=== PATIENT | female | born 1965 | race Caucasian/White ===

== ENCOUNTER → 2016-10-15 | Outpatient (CLI) | payer BC | LOC: OD 08:10 | PROVIDERS: ATTEND Internal Medicine | DX: M19.012 Primary osteoarthritis, left shoulder (principal) ==

== ENCOUNTER → 2016-10-30 | Outpatient (CLI) | payer BC ==
[2016-10-30 15:10] LABS: ABSOLUTE BASOPHILS # (AUTO) 0.1 10^3/uL (0.0-0.2); ABSOLUTE EOSINOPHILS # (AUTO) 0.2 10^3/uL (0.0-0.6); ABSOLUTE MONOCYTES (AUTO) 0.6 10^3/uL (0.1-1.4); ABSOLUTE NEUT (AUTO) 4.1 10^3/uL (1.7-8.2); BASOPHILS % (AUTO) 0.8 % (0-2); EOSINOPHILS % (AUTO) 2.3 % (0-6); HEMATOCRIT 41.5 % (36.0-47.0); HEMOGLOBIN 14.5 g/dL (12.0-15.5); LYMPHOCYTES % (AUTO) 29.6 % (13-45); MEAN CORPUSCULAR HEMOGLOBIN 31.6 pg (27.0-33.4); MEAN CORPUSCULAR HGB CONC 34.9 g/dL (32.0-36.0); MEAN CORPUSCULAR VOLUME 91 fl (80-97); MONOCYTES % (AUTO) 8.1 % (3-13); RED BLOOD COUNT 4.58 10^6/uL (3.72-5.28); RED CELL DISTRIBUTION WIDTH 13.7 % (11.5-14.0); SEGMENTED NEUTROPHILS % (AUTO) 59.2 % (42-78); WHITE BLOOD COUNT 6.9 10^3/uL (4.0-10.5)
[2016-10-30 17:11] LABS: ALANINE AMINOTRANSFERASE 44 U/L (9-52); ALBUMIN 4.5 g/dL (3.5-5.0); ALKALINE PHOSPHATASE 90 U/L (38-126); ANION GAP 16 (5-19); ASPARTATE AMINO TRANSFERASE 33 U/L (14-36); BILIRUBIN,DIRECT 0.4 mg/dL (0.0-0.4); BILIRUBIN,TOTAL 0.9 mg/dL (0.2-1.3); BLOOD UREA NITROGEN 14 mg/dL (7-20); CALCIUM 9.6 mg/dL (8.4-10.2); CARBON DIOXIDE 22 mmol/L (22-30); CHLORIDE 102 mmol/L (98-107); CHOLESTEROL 233.37 mg/dL (0-200); CREATININE RESULT 0.74 mg/dL (0.52-1.25); Direct HDL 37 mg/dL (>40); GLUCOSE 96 mg/dL (75-110); POTASSIUM 3.9 mmol/L (3.6-5.0); SODIUM 140.2 mmol/L (137-145); TOTAL PROTEIN 7.5 g/dL (6.3-8.2); TRIGLYCERIDES 212 mg/dL (<150)
[2016-10-30 17:22] LABS: DIRECT LDL 146 mg/dL (<100)
[2016-10-30 17:26] LABS: VLDL CHOLESTEROL 42.4 mg/dL (10-31)
== END ==
LOC: OD 14:25
PROVIDERS: ATTEND Internal Medicine
DX: E78.2 Mixed hyperlipidemia (principal); Z13.1 Encounter for screening for diabetes mellitus; E55.9 Vitamin D deficiency, unspecified; E66.9 Obesity, unspecified; Z79.899 Other long term (current) drug therapy
CPT/HCPCS: 36415; 80053; 80061; 82306; 84443; 85025

== ENCOUNTER → 2016-11-04 | Outpatient (CLI) | payer BC ==
[2016-11-04 17:11] LABS: THYROID STIMULATING HORMONE 5.35 uIU/mL (0.47-4.68)
== END ==
LOC: OD 14:55
PROVIDERS: ATTEND Internal Medicine
DX: E66.9 Obesity, unspecified (principal)
CPT/HCPCS: 36415; 84439; 84443; 86376

== ENCOUNTER → 2016-12-10 | Outpatient (CLI) | payer BC ==
--- NOTE | 2016-12-10 16:57 | RADIOLOGY REPORT (SQ) ---
EXAM DESCRIPTION: MRI CERVICAL SPINE WITHOUT COMPLETED DATE/TIME: 12/10/2016 4:29 pm REASON FOR STUDY: RADICULOPATHY, CERVICAL REGION M54.12 RADICULOPATHY, CERVICAL REGION COMPARISON: Cervical spine five views 08/06/2013 TECHNIQUE: Sagittal and Axial imaging includes T1, T2, STIR and gradient echo sequences. LIMITATIONS: None. FINDINGS: ALIGNMENT: Normal. VERTEBRAE: Intact. BONE MARROW: Normal. No marrow replacement or reactive changes. DISCS: Mild diffuse decreased T2 weighted intervertebral disc signal throughout the visualized cervic al and upper thoracic spine HARDWARE: None in the spine. CORD AND BASE OF BRAIN: Normal in size and signal intensity. SOFT TISSUES: No soft tissue masses. C1-C2: No significant spinal stenosis. C2-C3: No significant spinal stenosis or exit foraminal stenosis. C3-C4: Minimal central posterior disc bulging is present without significant central canal or right f oraminal narrowing. Mild left foraminal narrowing from facet and uncovertebral hypertrophy. C4-C5: Minimal posterior disc bulging is present without significant central stenosis. No foraminal narrowing. C5-C6: Mild diffuse posterior disc bulging is present without significant central or foraminal encroa chment C6-C7: Mild diffuse posterior disc bulging is present without significant central or foraminal encroa chment C7-T1: Mild posterior disc bulging is present without significant central or foraminal encroachment UPPER THORACIC: Incompletely imaged. No significant spinal stenosis or exit foraminal stenosis. OTHER: No other significant finding. IMPRESSION: No significant central or foraminal stenosis. TECHNICAL DOCUMENTATION: JOB ID: [id number] [employer]- All Rights Reserved
== END ==
LOC: RAD 15:48
PROVIDERS: ATTEND Orthopaedic Surgery
DX: M54.12 Radiculopathy, cervical region (principal)
CPT/HCPCS: 72141

== ENCOUNTER 2017-03-05 12:55 | Emergency (ER) | payer BC ==
[2017-03-05] MEDS ORDERED: HYDROCODONE/ACETAMINOPHEN 5-325 MG TABLET PO ONE (13:14)
[2017-03-05] MEDS ORDERED: ONDANSETRON 4 MG TAB.RAPDIS PO ONE (13:14)
--- NOTE | 2017-03-05 13:16 | ER Document Report ---
ED Medical Screen (RME) - General Chief Complaint: Abdominal Pain Stated Complaint: STOMACH PAIN Time Seen by Provider: 03/05/17 13:11 Notes: 51-year-old female patient reports eating burgers at [employer] yesterday about 1 PM. About 6 PM she started having right upper quadrant abdominal pain. There is no diarrhea associated with this but quite a bit of nausea. She had been diagnosed with ulcers a few years ago. She still has her gallbladder. She is quite tender in the right upper quadrant on palpation. I have greeted and performed a rapid initial assessment of this patient. A comprehensive ED assessment and evaluation of the patient, analysis of test results and completion of the medical decision making process will be conducted by additional ED providers. TRAVEL OUTSIDE OF THE [place] IN LAST 30 DAYS: No - Related Data Allergies/Adverse Reactions: lovastatin [From Mevacor] Allergy (Severe, Verified 03/05/17 13:01) Past Medical History - Social History Chew tobacco use (# tins/day): No Frequency of alcohol use: None Drug Abuse: None - Past Medical History Cardiac Medical History: Reports: Hx Heart Attack, Hx Hypercholesterolemia, Hx Hypertension Denies: Hx Atrial Fibrillation, Hx Congestive Heart Failure, Hx Coronary Artery Disease, Hx Peripheral Vascular Disease, Hx Pulmonary Embolism, Hx Heart Murmur Pulmonary Medical History: Reports: Hx Asthma, Hx Bronchitis, Hx COPD Denies: Hx Pneumonia, Hx Respiratory Failure, Hx Sleep Apnea, Hx Tuberculosis Neurological Medical History: Reports: Hx Migraine. Denies: Hx Cerebrovascular Accident, Hx Seizures Endocrine Medical History: Denies: Hx Graves' Disease, Hx Hyperthyroidism, Hx Hypothyroidism Renal/ Medical History: Denies: Hx End Stage Renal Disease, Hx Kidney Stones, Hx Ovarian Cysts, Hx Peritoneal Dialysis, Hx Pelvic Inflammatory Disease Malignancy Medical History: Denies: Hx Breast Cancer, Hx Cervical Cancer, Hx Leukemia, Hx Lung Cancer, Hx Ovarian Cancer GI Medical History: Reports: Hx Gastroesophageal Reflux Disease. Denies: Hx Crohn's Disease, Hx Hiatal Hernia, Hx Irritable Bowel, Hx Liver Failure, Hx Ulcer Musculoskeltal Medical History: Reports Hx Arthritis, Denies Hx Fibromyalgia, Denies Hx Multiple Sclerosis, Denies Hx Muscular Dystrophy, Reports Hx Musculoskeletal Deformity, Reports Hx Musculoskeletal Trauma Psychiatric Medical History: Denies: Hx Bipolar Disorder, Hx Dementia, Hx Depression, Hx Post Traumatic Stress Disorder, Hx Schizophrenia Traumatic Medical History: Reports: Hx Fractures - SHOUDLER AND BACK Infectious Medical History: Denies: Hx HIV Past Surgical History: Reports: Hx Genitourinary Surgery - "bladder mesh" 2016, Hx Tonsillectomy - 1970, Hx Tubal Ligation. Denies: Hx Appendectomy, Hx Bowel Surgery, Hx Section, Hx Cholecystectomy, Hx Colostomy, Hx Coronary Artery Bypass Graft, Hx Gastric Bypass Surgery, Hx Herniorrhaphy, Hx Hysterectomy, Hx Mastectomy, Hx Pacemaker - Immunizations Immunizations up to date: No Hx Diphtheria, Pertussis, Tetanus Vaccination: Yes Physical Exam - Vital signs Vitals: Temp Pulse Resp BP Pulse Ox 98.6 F 94 20 182/98 H 98 03/05/17 12:59 03/05/17 12:59 03/05/17 12:59 03/05/17 12:59 03/05/17 12:59 Course - Vital Signs Vital signs: Temp Pulse Resp BP Pulse Ox 98.6 F 94 20 182/98 H 98 03/05/17 12:59 03/05/17 12:59 03/05/17 12:59 03/05/17 12:59 03/05/17 12:59
[2017-03-05 14:15] LABS: ABSOLUTE EOSINOPHILS # (AUTO) 0.2 10^3/uL (0.0-0.6); ABSOLUTE LYMPHOCYTES (AUTO) 1.8 10^3/uL (0.5-4.7); ABSOLUTE MONOCYTES (AUTO) 0.8 10^3/uL (0.1-1.4); ABSOLUTE NEUT (AUTO) 5.8 10^3/uL (1.7-8.2); BASOPHILS % (AUTO) 0.6 % (0-2); EOSINOPHILS % (AUTO) 1.9 % (0-6); HEMOGLOBIN 14.2 g/dL (12.0-15.5); HGB HCT DIFFERENCE 3.6; LYMPHOCYTES % (AUTO) 21.1 % (13-45); MEAN CORPUSCULAR HEMOGLOBIN 32.8 pg (27.0-33.4); MEAN CORPUSCULAR HGB CONC 36.3 g/dL (32.0-36.0); MEAN CORPUSCULAR VOLUME 90 fl (80-97); MONOCYTES % (AUTO) 8.8 % (3-13); RED BLOOD COUNT 4.32 10^6/uL (3.72-5.28); RED CELL DISTRIBUTION WIDTH 13.8 % (11.5-14.0); SEGMENTED NEUTROPHILS % (AUTO) 67.6 % (42-78); WHITE BLOOD COUNT 8.6 10^3/uL (4.0-10.5)
[2017-03-05 14:24] LABS: APPEARANCE,URINE CLOUDY; BILIRUBIN,URINE NEGATIVE (NEGATIVE); GLUCOSE, URINE NEGATIVE (NEGATIVE); KETONES,URINE NEGATIVE (NEGATIVE); LEUKOCYTE ESTERASE,URINE LARGE (NEGATIVE); NITRITE,URINE POSITIVE (NEGATIVE); PROTEIN,URINE 30 mg/dL (NEGATIVE); URINE SPECIFIC GRAVITY 1.014; UROBILINOGEN,URINE NEGATIVE mg/dL (<2.0)
[2017-03-05 14:37] LABS: ALANINE AMINOTRANSFERASE 51 U/L (9-52); ALBUMIN 4.5 g/dL (3.5-5.0); ALKALINE PHOSPHATASE 93 U/L (38-126); ANION GAP 12 (5-19); ASPARTATE AMINO TRANSFERASE 41 U/L (14-36); BILIRUBIN,DIRECT 0.4 mg/dL (0.0-0.4); BILIRUBIN,TOTAL 1.2 mg/dL (0.2-1.3); BLOOD UREA NITROGEN 10 mg/dL (7-20); CALCIUM 9.7 mg/dL (8.4-10.2); CARBON DIOXIDE 27 mmol/L (22-30); CHLORIDE 104 mmol/L (98-107); CREATININE RESULT 0.64 mg/dL (0.52-1.25); GLUCOSE 97 mg/dL (75-110); LIPASE 80.5 U/L (23-300); POTASSIUM 3.8 mmol/L (3.6-5.0); SODIUM 143.4 mmol/L (137-145); TOTAL PROTEIN 7.6 g/dL (6.3-8.2)
[2017-03-05] MEDS ORDERED: CEFTRIAXONE INJ 1000 MG VIAL IM ONE (14:53)
[2017-03-05] MEDS ORDERED: LIDOCAINE 1% INJ-PF (10 MG/ML) 30 ML SDV INJ ONE (14:53)
--- NOTE | 2017-03-05 14:53 | ER Document Report ---
ED GI/ - General Chief Complaint: Abdominal Pain Stated Complaint: STOMACH PAIN Time Seen by Provider: 03/05/17 13:11 Mode of Arrival: Ambulatory Information source: Patient Notes: Patient presents complaining of right upper quadrant abdominal pain that started around 6 PM yesterday. Patient states she did have a fever of over 100 yesterday but used an old thermometer and could not read the numbers exactly. Patient denies any nausea, vomiting or diarrhea. Patient denies any cough. Patient without any chest pain symptoms. Patient does complain of some urinary frequency. TRAVEL OUTSIDE OF THE [place] IN LAST 30 DAYS: No - HPI Patient complains to provider of: Abdominal pain, Other - Urinary frequency. No : Dysuria, Vaginal discharge, Vomiting Onset: Yesterday Timing/Duration: Persistent Quality of pain: Other - Tight Pain Level: 4 Location: RUQ. No: Left flank, Right flank Vaginal bleeding (Compared to normal period): None Associated symptoms: Fever, Urinary frequency. 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 with: Spouse/Significant other Family History: Reviewed & Not Pertinent, Arthritis, CAD, CVA, DM, Hyperlipidemia, Hypertension, Thyroid Disfunction - Past Medical History Cardiac Medical History: Reports: Hx Heart Attack, Hx Hypercholesterolemia, Hx Hypertension Pulmonary Medical History: Reports: Hx Asthma, Hx Bronchitis, Hx COPD Neurological Medical History: Reports: Hx Migraine GI Medical History: Reports: Hx Gastroesophageal Reflux Disease Musculoskeltal Medical History: Reports Hx Arthritis, Reports Hx Musculoskeletal Deformity, Reports Hx Musculoskeletal Trauma Traumatic Medical History: Reports: Hx Fractures - SHOUDLER AND BACK Infectious Medical History: Denies: Hx HIV Past Surgical History: Reports: Hx Genitourinary Surgery - "bladder mesh" 2016, Hx Tonsillectomy - 1970, Hx Tubal Ligation - Immunizations Immunizations up to date: No Hx Diphtheria, Pertussis, Tetanus Vaccination: Yes Review of Systems - Review of Systems Constitutional: Fever. denies: Recent illness EENT: No symptoms reported Cardiovascular: No symptoms reported. denies: Chest pain Respiratory: No symptoms reported. denies: Cough, Short of breath Gastrointestinal: Abdominal pain. denies: Diarrhea, Nausea, Vomiting, Constipation Genitourinary: Frequency. denies: Dysuria, Flank pain Female Genitourinary: No symptoms reported. denies: Vaginal discharge, Vaginal bleeding Musculoskeletal: No symptoms reported. denies: Back pain Skin: No symptoms reported Hematologic/Lymphatic: No symptoms reported Neurological/Psychological: No symptoms reported Physical Exam - Vital signs Vitals: Temp Pulse Resp BP Pulse Ox 98.6 F 94 20 182/98 H 98 03/05/17 12:59 03/05/17 12:59 03/05/17 12:59 03/05/17 12:59 03/05/17 12:59 - General General appearance: Appears well, Alert In distress: None - HEENT Head: Normocephalic Eyes: Normal Conjunctiva: Normal Nasal: Normal Mouth/Lips: Normal Mucous membranes: Normal Neck: Normal, Supple. No: Lymphadenopathy - Respiratory Respiratory status: No respiratory distress Chest status: Nontender Breath sounds: Normal. No: Rales, Rhonchi, Stridor, Wheezing Chest palpation: Normal - Cardiovascular Rhythm: Regular Heart sounds: S1 appreciated, S2 appreciated Murmur: No - Abdominal Inspection: Obese Distension: No distension Bowel sounds: Normal Tenderness: Tender - RUQ Organomegaly: No organomegaly - Back Back: Normal, Nontender. No: CVA tenderness, Vertebra tenderness - Extremities General upper extremity: Normal inspection, Normal ROM General lower extremity: Normal inspection, Normal ROM - Neurological Neuro grossly intact: Yes Cognition: Normal Orientation: AAOx4 [place] Coma Scale Eye Opening: Spontaneous [place] Coma Scale Verbal: Oriented [place] Coma Scale Motor: Obeys Commands [place] Coma Scale Total: 15 - Psychological Associated symptoms: Normal affect, Normal mood - Skin Skin Temperature: Warm Skin Moisture: Dry Skin Color: Normal Course - Re-evaluation Re-evalutation: 03/05/17 15:[address] Russell who agrees with discharge plan of care. Does not recommend any additional imaging studies. Agrees with plan to treat patient's UTI with Rocephin and Bactrim. - Vital Signs Vital signs: Temp Pulse Resp BP Pulse Ox 98.6 F 94 20 158/95 H 98 03/05/17 12:59 03/05/17 12:59 03/05/17 12:59 03/05/17 17:11 03/05/17 12:59 - Laboratory Result Diagrams: 03/05/17 13:40 03/05/17 13:40 Laboratory results interpreted by me: 03/05/17 03/05/17 03/05/17 13:40 13:40 13:40 MCHC 36.3 H AST 41 H Urine Protein 30 H Urine Blood SMALL H Urine Nitrite POSITIVE H Ur Leukocyte Esterase LARGE H 03/05/17 15:52 Labs- Entire Visit 03/05/17 03/05/17 03/05/17 13:40 13:40 13:40 WBC 8.6 RBC 4.32 Hgb 14.2 Hct 39.0 MCV 90 MCH 32.8 MCHC 36.3 H RDW 13.8 Plt Count 201 Seg Neutrophils % 67.6 Lymphocytes % 21.1 Monocytes % 8.8 Eosinophils % 1.9 Basophils % 0.6 Absolute Neutrophils 5.8 Absolute Lymphocytes 1.8 Absolute Monocytes 0.8 Absolute Eosinophils 0.2 Absolute Basophils 0.0 Sodium 143.4 Potassium 3.8 Chloride 104 Carbon Dioxide 27 Anion Gap 12 BUN 10 Creatinine 0.64 Est GFR ( Amer) > 60 Est GFR (Non-Af Amer) > 60 Glucose 97 Calcium 9.7 Total Bilirubin 1.2 Direct Bilirubin 0.4 Indirect Bilirubin Not Reportable Neonat Total Bilirubin Not Reportable AST 41 H ALT 51 Alkaline Phosphatase 93 Total Protein 7.6 Albumin 4.5 Lipase 80.5 Urine Color YELLOW Urine Appearance CLOUDY Urine pH 5.0 Ur Specific [place] 1.014 Urine Protein 30 H Urine Glucose (UA) NEGATIVE Urine Ketones NEGATIVE Urine Blood SMALL H Urine Nitrite POSITIVE H Urine Bilirubin NEGATIVE Urine Urobilinogen NEGATIVE Ur Leukocyte Esterase LARGE H Urine WBC (Auto) >182 Urine RBC (Auto) 32 Urine Bacteria (Auto) 1+ Urine WBC Clumps MANY Squamous Epi Cells Auto 6 Urine Mucus (Auto) MANY Urine Ascorbic Acid NEGATIVE - Diagnostic Test Radiology reviewed: Reports reviewed Discharge - Discharge Clinical Impression: Fatty liver, Hx of essential hypertension UTI (urinary tract infection) Qualifiers: Urinary tract infection type: site unspecified Hematuria presence: with hematuria Qualified Code(s): N39.0 - Urinary tract infection, site not specified Abdominal pain Qualifiers: Abdominal location: right upper quadrant Qualified Code(s): R10.11 - Right upper quadrant pain Condition: Stable Disposition: HOME, SELF-CARE Instructions: Abdominal Pain ([facility]), Rocephin ([facility]), Trimethoprim-Sulfa ([facility]), Urinary Tract Infection ([facility]) Additional Instructions: Return immediately for any new or worsening symptoms Followup with your primary care provider, call tomorrow to make a followup appointment Urine cultures pending, we will call if you need any different treatment Follow-up with your primary doctor for further evaluation of fatty liver findings on ultrasound Prescriptions: Phenazopyridine HCl [Pyridium 200 mg Tablet] 200 mg PO TID #15 tablet Sulfamethoxazole/Trimethoprim [Bactrim Ds Tablet] 1 each PO BID #20 tablet Forms: Elevated Blood Pressure Referrals: ISAAC CORTEZ MD [Primary Care Provider] - 03/08/17 RANDEE LOWE MD [ACTIVE STAFF] - Follow up in 1 week
--- NOTE | 2017-03-05 15:09 | RADIOLOGY REPORT (SQ) ---
EXAM DESCRIPTION: U/S ABDOMEN LIMITED W/O DOP COMPLETED DATE/TIME: 03/05/2017 2:40 pm REASON FOR STUDY: RUQ abd pain COMPARISON: None. TECHNIQUE: Dynamic and static grayscale images acquired of the abdomen and recorded on PACS. Amrito deborah selected color Doppler and spectral images recorded. LIMITATIONS: None. FINDINGS: PANCREAS: No masses. Visualized pancreatic duct normal caliber. LIVER: 18.5 cm. Increased echogenicity. Focal fatty sparing adjacent to the gallbladder. LIVER VASCULATURE: Normal directional flow of the main portal vein and hepatic veins. GALLBLADDER: No stones. Normal wall thickness. No pericholecystic fluid. ULTRASOUND-DETECTED JOSHUA'S SIGN: Negative. INTRAHEPATIC DUCTS AND COMMON DUCT: CBD and intrahepatic ducts normal caliber. No filling defects. INFERIOR VENA CAVA: Normal flow. AORTA: No aneurysm. RIGHT KIDNEY: Normal size, 11.5 cm. Normal echogenicity. No solid or suspicious masses. No hydroneph rosis. No calcifications. PERITONEAL AND RIGHT PLEURAL SPACE: No ascites or effusions. OTHER: No other significant findings. IMPRESSION: Hepatomegaly with fatty infiltration of the liver. TECHNICAL DOCUMENTATION: JOB ID: [id number] [employer]- All Rights Reserved
[2017-03-05] MEDS ORDERED: SULFAMETHOXAZOLE/TRIMETHOPRIM 800-160 MG TABLET PO ONE (15:57)
[2017-03-05] MEDS ORDERED: PHENAZOPYRIDINE HCL 200 MG TABLET PO ONE (15:57)
[2017-03-05 17:12] VITALS: BP 158/95
== END 2017-03-05 17:12 | disposition home or self-care (01) ==
LOC: ER 12:55
DX: N39.0 Urinary tract infection, site not specified (principal); R31.9 Hematuria, unspecified; K76.0 Fatty (change of) liver, not elsewhere classified; R10.11 Right upper quadrant pain; R35.0 Frequency of micturition; R50.9 Fever, unspecified; I25.2 Old myocardial infarction; I10 Essential (primary) hypertension; J44.9 Chronic obstructive pulmonary disease, unspecified; Z87.19 Personal history of other diseases of the digestive system; Z88.8 Allergy status to other drugs, medicaments and biological substances
CPT/HCPCS: 99284; 96372; 36415; 87086; 83690; 85025; 87088; 80053; 81001; 87186; 76705; S0119; J3490 ×2; J0696

== ENCOUNTER 2017-10-10 18:07 | Emergency (ER) | payer BC, OTHER ==
[2017-10-10] MEDS ORDERED: HYDROCODONE/ACETAMINOPHEN 5-325 MG (6 TAB/ER DISP) PO PRN (20:12)
[2017-10-10] MEDS ORDERED: LIDOCAINE 5% (700 MG) TRANSDERMAL ADH..PATCH TP ONE (20:12)
[2017-10-10] MEDS ORDERED: CYCLOBENZAPRINE HCL 10 MG TABLET PO ONE (20:12)
--- NOTE | 2017-10-10 20:15 | ER Document Report ---
HPI - HPI Patient complains to provider of: Neck pain Onset: Other - 5 months Onset/Duration: Persistent Quality of pain: Achy Pain Level: 4 Context: Patient presents complaining of left lateral neck pain for the past 5 months. Patient denies any injury. Patient states she does have a known history of cervical spurring diagnosed on MRI last year. Patient denies any fever. Patient denies any weakness. Patient complains worsening pain which prompted her to come in today. Associated Symptoms: Other - Left-sided neck pain. denies: Headache Exacerbated by: Movement Relieved by: Denies Similar symptoms previously: Yes Recently seen / treated by doctor: No - ROS ROS below otherwise negative: Yes Systems Reviewed and Negative: Yes All other systems reviewed and negative - CONSTITUTIONAL Constitutional: DENIES: Fever, Chills - EENT EENT: DENIES: Sore Throat, Ear Pain, Eye problems - NEURO Neurology: DENIES: Headache, Weakness - CARDIOVASCULAR Cardiovascular: DENIES: Chest pain - RESPIRATORY Respiratory: DENIES: Trouble Breathing, Coughing - GASTROINTESTINAL Gastrointestinal: DENIES: Abdominal Pain, Nausea, Patient vomiting - REPRODUCTIVE Reproductive: DENIES: : - MUSCULOSKELETAL Musculoskeletal: REPORTS: Back Pain, Neck Pain. DENIES: Extremity pain - DERM Skin Color: Normal Past Medical History - General Information source: Patient - Social History Smoking Status: Never Smoker Frequency of alcohol use: None Drug Abuse: None Occupation: [employer] Family History: Reviewed & Not Pertinent, Arthritis, CAD, CVA, DM, Hyperlipidemia, Hypertension, Thyroid Disfunction Patient has suicidal ideation: No Patient has homicidal ideation: No - Past Medical History Cardiac Medical History: Reports: Hx Heart Attack, Hx Hypercholesterolemia, Hx Hypertension Denies: Hx Atrial Fibrillation, Hx Congestive Heart Failure, Hx Coronary Artery Disease, Hx Peripheral Vascular Disease, Hx Pulmonary Embolism, Hx Heart Murmur Pulmonary Medical History: Reports: Hx Asthma, Hx Bronchitis, Hx COPD Denies: Hx Pneumonia, Hx Respiratory Failure, Hx Sleep Apnea, Hx Tuberculosis Neurological Medical History: Reports: Hx Migraine. Denies: Hx Cerebrovascular Accident, Hx Seizures Endocrine Medical History: Denies: Hx Graves' Disease, Hx Hyperthyroidism, Hx Hypothyroidism Renal/ Medical History: Denies: Hx End Stage Renal Disease, Hx Kidney Stones, Hx Ovarian Cysts, Hx Peritoneal Dialysis, Hx Pelvic Inflammatory Disease Malignancy Medical History: Denies: Hx Breast Cancer, Hx Cervical Cancer, Hx Leukemia, Hx Lung Cancer, Hx Ovarian Cancer GI Medical History: Reports: Hx Gastroesophageal Reflux Disease. Denies: Hx Crohn's Disease, Hx Hiatal Hernia, Hx Irritable Bowel, Hx Liver Failure, Hx Pancreatitis, Hx Ulcer Musculoskeltal Medical History: Reports Hx Arthritis, Denies Hx Fibromyalgia, Denies Hx Multiple Sclerosis, Denies Hx Muscular Dystrophy, Reports Hx Musculoskeletal Deformity, Reports Hx Musculoskeletal Trauma Psychiatric Medical History: Denies: Hx Bipolar Disorder, Hx Dementia, Hx Depression, Hx Post Traumatic Stress Disorder, Hx Schizophrenia Traumatic Medical History: Reports: Hx Fractures - SHOUDLER AND BACK Infectious Medical History: Denies: Hx HIV Past Surgical History: Reports: Hx Genitourinary Surgery - "bladder mesh" 2016, Hx Tonsillectomy - 1970, Hx Tubal Ligation - Immunizations Immunizations up to date: No Hx Diphtheria, Pertussis, Tetanus Vaccination: Yes Vertical Provider Document - CONSTITUTIONAL Agree With Documented VS: Yes Exam Limitations: No Limitations General Appearance: WD/WN, No Apparent Distress - INFECTION CONTROL TRAVEL OUTSIDE OF THE [place] IN LAST 30 DAYS: No - HEENT HEENT: Atraumatic, Normal ENT Exam, Normocephalic Notes: No pain with movement of left helix. No dental decay or infection. - NECK Neck: Normal Inspection, Supple - RESPIRATORY Respiratory: Breath Sounds Normal, No Respiratory Distress - CARDIOVASCULAR Cardiovascular: Regular Rate, Regular Rhythm - BACK Back: Abnormal Inspection - Left trapezius muscle tenderness. negative: CVA Tenderness-Right, CVA Tenderness-Left - MUSCULOSKELETAL/EXTREMETIES Musculoskeletal/Extremeties: MAEW, FROM - NEURO Level of Consciousness: Awake, Alert, Appropriate Motor/Sensory: No Motor Deficit - DERM Integumentary: Warm, Dry, No Rash Course - Re-evaluation Re-evalutation: 10/10/17 20:13 Presents with left lateral neck pain for the past 5 months. Patient states she has a known spur in her cervical spine. Patient without any meningismus, no concern for any cardiac source for her symptoms. Patient encouraged to follow- up with the primary doctor for management of her chronic neck pain. - Vital Signs Vital signs: Temp Pulse Resp BP Pulse Ox 98.3 F 74 14 133/85 H 97 10/10/17 18:14 10/10/17 18:14 10/10/17 18:14 10/10/17 18:14 10/10/17 18:14 Discharge - Discharge Clinical Impression: Chronic neck pain Condition: Stable Disposition: HOME, SELF-CARE Instructions: Chronic Pain Control ([facility]), Muscle Relaxers ([facility]), Muscle Strain ([facility]), Oral Narcotic Medication ([facility]) Additional Instructions: Return immediately for any new or worsening symptoms Followup with your primary care provider, call tomorrow to make a followup appointment Do not take the tramadol with the hydrocodone or the Flexeril Prescriptions: Cyclobenzaprine HCl [Flexeril 10 Mg Tablet] 10 mg PO TID #15 tablet Hydrocodone/Acetaminophen [Heber 5-325 Tablet] 1 each PO Q6 PRN #8 tablet PRN Reason: Referrals: ISAAC CORTEZ MD [Primary Care Provider] - Follow up tomorrow
[2017-10-10 20:26] VITALS: BP 135/85
== END 2017-10-10 20:27 | disposition home or self-care (01) ==
LOC: ER 18:07
DX: M54.2 Cervicalgia (principal); G89.29 Other chronic pain; M54.9 Dorsalgia, unspecified; I25.2 Old myocardial infarction; I10 Essential (primary) hypertension; J44.9 Chronic obstructive pulmonary disease, unspecified
CPT/HCPCS: 99283

== ENCOUNTER → 2018-08-24 | Outpatient (CLI) | payer BC ==
--- NOTE | 2018-08-24 16:37 | WOMENS IMAGING REPORT ---
EXAM DESCRIPTION: BILAT SCREENING MAMMO W/CAD COMPLETED DATE/TIME: 08/24/2018 3:00 pm REASON FOR STUDY: Z12.31 ROUTINE BILATERAL SCREENING Z12.31 ENCNTR SCREEN MAMMOGRAM FOR MALIGNANT N EOPLASM OF SUSY COMPARISON: 01/10/2016. TECHNIQUE: Standard craniocaudal and mediolateral oblique views of each breast recorded using Tutora l acquisition. LIMITATIONS: None. FINDINGS: No masses, calcifications or architectural distortion. No areas of suspicion. Read with the assistance of CAD. .[facility] - R2 Cenova Version 1.3 .[facility] - R2 Cenova Version 2.1 .[facility] - R2 Cenova Version 2.4 .[facility] - R2 Cenova Version 2.4 .[facility] - R2 State Assessed Properties Director Version 9.2 IMPRESSION: NORMAL MAMMOGRAM. BIRADS 1. BREAST DENSITY: a. The breasts are almost entirely fatty. BIRAD: 1 NEGATIVE RECOMMENDATION: ROUTINE SCREENING COMMENT: The patient has been notified of the results by letter per SA requirements. Additional no tification policies are in place for contacting patient with suspicious or incomplete findings. Quality ID #[id number]: The [employer] recommends an annual screening mammogram for women aged 40 years or over. This facility utilizes a reminder system to ensure that all patients receive reminder letters, and/or direct phone calls for appointments. This includes reminders for routine scr eening mammograms, diagnostic mammograms, or other Breast Imaging Interventions when appropriate. Th is patient will be placed in the appropriate reminder system. The [employer] (ACR) has developed recommendations for screening MRI of the breast s in certain patient populations, to be used in conjunction with mammography. Breast MRI surveillanc e may be appropriate for women with more than 20% lifetime risk of developing breast cancer as deter mined by genetic testing, significant family history of the disease, or history of mantle radiation f or Hodgkins Disease. ACR Practice Guidelines 2008. TECHNICAL DOCUMENTATION: FINDING NUMBER: (1) ASSESSMENT: (1) JOB ID: [id number] [employer]- All Rights Reserved Reading location - IP/workstation name: [email or web address]
== END ==
LOC: WI 14:55
PROVIDERS: ATTEND Internal Medicine
DX: Z12.31 Encounter for screening mammogram for malignant neoplasm of breast (principal)
CPT/HCPCS: 77067

== ENCOUNTER 2018-10-02 10:51 | Emergency (ER) | payer BC ==
[2018-10-02] MEDS ORDERED: KETOROLAC TROMETHAMINE 60 MG/2 ML SDV IM ONE (11:27)
--- NOTE | 2018-10-02 11:35 | ER Document Report ---
ED Extremity Problem, Upper - General Chief Complaint: Arm Pain Stated Complaint: RIGHT ARM PAIN Time Seen by Provider: 10/02/18 11:12 Primary Care Provider: ISAAC CORTEZ MD [Primary Care Provider] - Follow up as needed Mode of Arrival: Ambulatory Information source: Patient Notes: 53-year-old female presented to ED for complaint of pain in her right arm. She states she was pulling the chopper out from the cabinet she tripped fell landing on the table and then fell off the table landing on the chair injuring her right upper arm. Patient is alert oriented respirations regular and unlabored. She has limited motion to the shoulder due to chronic pain to bilateral shoulders. She states she gets frequent injections into her shoulders and has an appointment for orthopedics on Wednesday. She states she is on tramadol at home at this time. TRAVEL OUTSIDE OF THE [place] IN LAST 30 DAYS: No - HPI Patient complains to provider of: Right, Shoulder Onset: This morning Recent injury: Possibly Where: Home, Indoors Quality of pain: Sharp, Throbbing Severity of pain: Severe Pain Level: 5 Context: Fall Associated symptoms: None Exacerbated by: Movement, Exertion Relieved by: Rest, Positioning Similar symptoms previously: Yes Recently seen / treated by doctor: No - Related Data Allergies/Adverse Reactions: lovastatin [From Mevacor] Allergy (Severe, Verified 10/02/18 10:52) Past Medical History - General Information source: Patient - Social History Smoking Status: Never Smoker Chew tobacco use (# tins/day): No Frequency of alcohol use: None Drug Abuse: None Lives with: Family Family History: Reviewed & Not Pertinent, Arthritis, CAD, CVA, DM, Hyperlipidemia, Hypertension, Thyroid Disfunction Patient has suicidal ideation: No Patient has homicidal ideation: No - Past Medical History Cardiac Medical History: Reports: Hx Heart Attack, Hx Hypercholesterolemia, Hx Hypertension Pulmonary Medical History: Reports: Hx Asthma, Hx Bronchitis, Hx COPD EENT Medical History: Reports: None Neurological Medical History: Reports: Hx Migraine Endocrine Medical History: Reports: None Renal/ Medical History: Reports: None Malignancy Medical History: Reports: None GI Medical History: Reports: Hx Gastroesophageal Reflux Disease Musculoskeletal Medical History: Reports Hx Arthritis, Reports Hx Musculoskeletal Deformity, Reports Hx Musculoskeletal Trauma Skin Medical History: Reports None Psychiatric Medical History: Reports: None Traumatic Medical History: Reports: Hx Fractures - SHOUDLER AND BACK Infectious Medical History: Reports: None Past Surgical History: Reports: Hx Genitourinary Surgery - "bladder mesh" 2017, Hx Tonsillectomy - 1970, Hx Tubal Ligation - Immunizations Immunizations up to date: No Hx Diphtheria, Pertussis, Tetanus Vaccination: Yes Review of Systems - Review of Systems Constitutional: No symptoms reported EENT: No symptoms reported Cardiovascular: No symptoms reported Respiratory: No symptoms reported Gastrointestinal: No symptoms reported Genitourinary: No symptoms reported Female Genitourinary: No symptoms reported Musculoskeletal: Joint pain - Right shoulder pain right upper arm pain, Muscle pain. denies: Joint swelling Skin: No symptoms reported Hematologic/Lymphatic: No symptoms reported Neurological/Psychological: No symptoms reported -: Yes All other systems reviewed and negative Physical Exam - Vital signs Vitals: Temp Pulse Resp BP Pulse Ox 98.1 F 81 16 141/78 H 95 10/02/18 10:58 10/02/18 10:58 10/02/18 10:58 10/02/18 10:58 10/02/18 10:58 Interpretation: Normal - General General appearance: Appears well, Alert - HEENT Head: Normocephalic, Atraumatic Eyes: Normal Pupils: PERRL - Respiratory Respiratory status: No respiratory distress Chest status: Nontender Breath sounds: Normal Chest palpation: Normal - Cardiovascular Rhythm: Regular Heart sounds: Normal auscultation Murmur: No - Abdominal Inspection: Normal Distension: No distension Bowel sounds: Normal Tenderness: Nontender Organomegaly: No organomegaly - Back Back: Normal, Nontender - Extremities General upper extremity: Normal color, Normal temperature General lower extremity: Normal inspection, Nontender, Normal color, Normal ROM, Normal temperature, Normal weight bearing. No: Corrine's sign Shoulder: Tender, Limited ROM - Right shoulder due to pain, has chronic shoulder problems to left and right shoulder. No: Abrasion, Deformity, Dislocation, Ecchymosis - Right shoulder, Instability, Laceration - Neurological Neuro grossly intact: Yes Cognition: Normal Orientation: AAOx4 [place] Coma Scale Eye Opening: Spontaneous [place] Coma Scale Verbal: Oriented [place] Coma Scale Motor: Obeys Commands [place] Coma Scale Total: 15 Speech: Normal Motor strength normal: LUE, RUE, LLE, RLE Sensory: Normal - Psychological Associated symptoms: Normal affect, Normal mood - Skin Skin Temperature: Warm Skin Moisture: Dry Skin Color: Normal Course - Vital Signs Vital signs: Temp Pulse Resp BP Pulse Ox 98.1 F 74 20 149/83 H 97 10/02/18 12:30 10/02/18 12:30 10/02/18 12:30 10/02/18 12:30 10/02/18 12:30 - Diagnostic Test Radiology reviewed: Image reviewed, Reports reviewed Procedures - Immobilization Right Shoulder Time completed: 11:45 Pre-Proc Neuro Vasc Exam: Normal Immobilizer type: Sling Performed by: PCT Post-Proc Neuro Vasc Exam: Normal Alignment checked and good: Yes Discharge - Discharge Clinical Impression: Right shoulder injury Qualifiers: Encounter type: initial encounter Qualified Code(s): S49.91XA - Unspecified injury of right shoulder and upper arm, initial encounter Condition: Stable Disposition: HOME, SELF-CARE Additional Instructions: Shoulder Injury You have injured your shoulder. This usually results from stretching or tearing of the tendons during trauma. Time and protection are required in order to heal properly. Many injuries are quite disabling, and should be taken seriously. Initial treatment includes cold packs and a sling to rest the shoulder. The physician has assessed the seriousness of your injury, and has outlined a treatment plan. Understand that this treatment may change, depending on how you progress. If a re-examination was recommended, it is important that you follow up as instructed. Some shoulder injuries (such as partial tear of the rotator cuff) are only suspected after you've failed to improve. Call us if there's severe pain, numbness, or loss of function. Exercise Program for the Shoulder Since the shoulder moves in so many directions, the joint attachment is weak. Muscles provide most of the stability to the shoulder. You must exercise your shoulder to prevent painful instability or stiffening. PASSIVE - These may be begun within a few days of the injury. While standing, lean forward, allowing the arm to hang down towards the floor. Move the arm in small circles while slowly twisting your chest towards and away from the hanging arm. Do this for one minute. ACTIVE - These may be performed when the doctor gives permission. Begin with the arms at the sides. Raise the arms forward (shoulder's width apart) until they reach shoulder level. Then slowly swing both arms back until they are aiming straight out away from each other. Then bring them forward again, and finally, lower them to your sides. Repeat 20 to 30 times. As you improve, put weights in your hands for the exercise. Start with one pound, and work up to 10 pounds. Never use more than is comfortable. Athletes may work up to 30 pounds. Sling as Treatment A sling has been applied to protect the injury. This is adequate immobilization for this type of injury -- no cast or brace is required. Keep the sling on at all times until instructed to remove it by the doctor. Even though no cast or splint is needed, you must use the sling. If you use the arm too soon, it may not heal properly! If necessary, the sling can be adjusted for comfort. Return if you are encountering problems with the sling. Ibuprofen Ibuprofen is an excellent, safe drug for pain control. In addition, it has potent antiinflammatory effects which are beneficial, especially in the treatment of injuries, arthritis, or tendonitis. It's best to take ibuprofen with food. Persons with ulcer disease or allergy to aspirin should notify their physician of this before taking ibuprofen. Take the medication exactly as prescribed. Don't take additional doses unless instructed to do so by your doctor. If you develop wheezing, shortness of breath, hives, faintness, stomach pain, vomiting, or dark black stools, return for re-evaluation at once. Ice Packs Apply ice packs frequently against the painful area. Many different schedules are recommended, such as "20 minutes on, 20 minutes off" or "one hour ice, two hours rest." If you need to work, you may need to go longer between ice treatments. You should plan to have the area ice packed AT LEAST one fourth of the time. The ice should be applied over the wrap, tape, or splint, or over a layer of cloth -- not directly against the skin. Some ice bags have a built-in cloth and can be put directly on the skin. FOLLOW-UP CARE: If you have been referred to a physician for follow-up care, call the physicians office for an appointment as you were instructed or within the next two days. If you experience worsening or a significant change in your symptoms, notify the physician immediately or return to the Emergency Department at any time for re-evaluation. Take your tramadol when you get home and also keep your appointment with orthopedics on Wednesday. Your x-ray was negative and I have given you a written report of the x-ray. The sling is to be used for pain. But she still need to move your shoulder to prevent a frozen shoulder. Forms: Elevated Blood Pressure, Return to Work Referrals: ISAAC CORTEZ MD [Primary Care Provider] - Follow up as needed
--- NOTE | 2018-10-02 11:58 | RADIOLOGY REPORT (SQ) ---
EXAM DESCRIPTION: SHOULDER RIGHT 2 OR MORE VIEWS COMPLETED DATE/TIME: 10/02/2018 11:40 am REASON FOR STUDY: pain and injury COMPARISON: None. NUMBER OF VIEWS: Three views. TECHNIQUE: Internal rotation, external rotation, and Y view images acquired of the right shoulder. LIMITATIONS: None. FINDINGS: MINERALIZATION: Normal. BONES: No acute fracture or dislocation. No worrisome bone lesions. JOINTS: No dislocation. VISUALIZED LUNGS AND RIBS: No pneumothorax. No rib fracture. SOFT TISSUES: No radiopaque foreign body. OTHER: No other significant finding. IMPRESSION: NEGATIVE STUDY OF THE RIGHT SHOULDER. NO RADIOGRAPHIC EVIDENCE OF ACUTE INJURY. TECHNICAL DOCUMENTATION: JOB ID: [id number] [employer]- All Rights Reserved Reading location - IP/workstation name: [email or web address]
[2018-10-02 12:31] VITALS: BP 149/83
== END 2018-10-02 12:38 | disposition home or self-care (01) ==
LOC: ER 10:51
DX: S49.91XA Unspecified injury of right shoulder and upper arm, initial encounter (principal); W01.190A Fall on same level from slipping, tripping and stumbling with subsequent striking against furniture, initial encounter; E78.00 Pure hypercholesterolemia, unspecified; I10 Essential (primary) hypertension; J44.9 Chronic obstructive pulmonary disease, unspecified; I25.2 Old myocardial infarction; Z98.51 Tubal ligation status
CPT/HCPCS: 99283; 96372; 73030; J1885

== ENCOUNTER 2018-11-09 13:35 | Emergency (ER) | payer BC ==
[2018-11-09 13:44] VITALS: BP 155/89
[2018-11-09] MEDS ORDERED: TRAMADOL HCL 50 MG TABLET PO ONE (14:19)
--- NOTE | 2018-11-09 14:20 | ER Document Report ---
HPI - HPI Patient complains to provider of: Left shoulder pain Time Seen by Provider: 11/09/18 14:10 Onset: Other - Chronic Onset/Duration: Persistent Severity: Severe Pain Level: 4 Context: Patient presents emergency department with complaints of left shoulder pain. Reports she is scheduled for surgery next Wednesday. Reports she has an appointment with Dr. Cortez on Wednesday. She is ran. She denies recent trauma. She denies other symptoms such as fever vomiting diarrhea. She is here for pain medication. She is left-hand dominant Associated Symptoms: None Exacerbated by: Movement Relieved by: Denies Similar symptoms previously: Yes Recently seen / treated by doctor: Yes - REPRODUCTIVE Reproductive: DENIES: : - MUSCULOSKELETAL Musculoskeletal: REPORTS: Extremity pain - L shoulder Past Medical History - General Information source: Patient - Social History Smoking Status: Never Smoker Chew tobacco use (# tins/day): No Frequency of alcohol use: None Drug Abuse: None Occupation: [employer] Family History: Reviewed & Not Pertinent, Arthritis, CAD, CVA, DM, Hyperlipidemia, Hypertension, Thyroid Disfunction Patient has suicidal ideation: No Patient has homicidal ideation: No - Past Medical History Cardiac Medical History: Reports: Hx Heart Attack, Hx Hypercholesterolemia, Hx Hypertension Denies: Hx Atrial Fibrillation, Hx Congestive Heart Failure, Hx Coronary Artery Disease, Hx Peripheral Vascular Disease, Hx Pulmonary Embolism, Hx Heart Murmur Pulmonary Medical History: Reports: Hx Asthma, Hx Bronchitis, Hx COPD Denies: Hx Pneumonia, Hx Respiratory Failure, Hx Sleep Apnea, Hx Tuberculosis Neurological Medical History: Reports: Hx Migraine. Denies: Hx Cerebrovascular Accident, Hx Seizures Endocrine Medical History: Denies: Hx Graves' Disease, Hx Hyperthyroidism, Hx Hypothyroidism Renal/ Medical History: Denies: Hx End Stage Renal Disease, Hx Kidney Stones, Hx Ovarian Cysts, Hx Peritoneal Dialysis, Hx Pelvic Inflammatory Disease Malignancy Medical History: Denies: Hx Breast Cancer, Hx Cervical Cancer, Hx Leukemia, Hx Lung Cancer, Hx Ovarian Cancer GI Medical History: Reports: Hx Gastroesophageal Reflux Disease. Denies: Hx Crohn's Disease, Hx Hiatal Hernia, Hx Irritable Bowel, Hx Liver Failure, Hx Pancreatitis, Hx Ulcer Musculoskeletal Medical History: Reports Hx Arthritis, Denies Hx Fibromyalgia, Denies Hx Multiple Sclerosis, Denies Hx Muscular Dystrophy, Reports Hx Musculoskeletal Deformity, Reports Hx Musculoskeletal Trauma, Denies Hx Systemic Lupus Erythematosus Psychiatric Medical History: Denies: Hx Bipolar Disorder, Hx Dementia, Hx Depression, Hx Post Traumatic Stress Disorder, Hx Schizophrenia Traumatic Medical History: Reports: Hx Fractures - SHOUDLER AND BACK Infectious Medical History: Denies: Hx HIV Past Surgical History: Reports: Hx Genitourinary Surgery - "bladder mesh" 2017, Hx Tonsillectomy - 1970, Hx Tubal Ligation. Denies: Hx Appendectomy, Hx Bowel Surgery, Hx Section, Hx Cholecystectomy, Hx Colostomy, Hx Coronary Artery Bypass Graft, Hx Gastric Bypass Surgery, Hx Herniorrhaphy, Hx Hysterectomy, Hx Mastectomy, Hx Pacemaker - Immunizations Immunizations up to date: No Hx Diphtheria, Pertussis, Tetanus Vaccination: Yes Vertical Provider Document - CONSTITUTIONAL Agree With Documented VS: Yes Exam Limitations: No Limitations General Appearance: WD/WN, No Apparent Distress - INFECTION CONTROL TRAVEL OUTSIDE OF THE [place] IN LAST 30 DAYS: No - HEENT HEENT: Atraumatic, Normocephalic - NECK Neck: Supple - RESPIRATORY Respiratory: No Respiratory Distress - CARDIOVASCULAR Cardiovascular: Regular Rate - MUSCULOSKELETAL/EXTREMETIES Musculoskeletal/Extremeties: Tender - Reports left shoulder tender to palpate - NEURO Level of Consciousness: Awake, Alert, Appropriate Motor/Sensory: No Motor Deficit - DERM Integumentary: Warm, Dry Course - Re-evaluation Re-evalutation: 11/09/18 Patient was instructed on chronic pain policy. Instructed to follow-up with Dr. Cortez for pain medication or her surgeon. Patient has had no recent trauma no other symptoms such as fever vomiting diarrhea no erythema or swelling to the area. Patient was provided with 1 Ultram here and again instructed to follow-up with Dr. Cortez who she has an appointment with on Wednesday. She verbalized understanding to all instructions. Dictation of this chart was performed using voice recognition software; therefore, there may be some unintended grammatical errors. - Vital Signs Vital signs: Temp Pulse Resp BP Pulse Ox 98.3 F 93 16 155/89 H 97 11/09/18 13:40 11/09/18 13:40 11/09/18 13:40 11/09/18 13:40 11/09/18 13:40 Discharge - Discharge Clinical Impression: Chronic left shoulder pain Condition: Stable Disposition: HOME, SELF-CARE Additional Instructions: *You have been evaluated for left shoulder pain *Keep your scheduled appointment for surgery next Wednesday *Follow-up with Dr. Cortez for pain management *Return to ED for worsening condition, changes, needs Forms: Elevated Blood Pressure Referrals: ISAAC CORTEZ MD [Primary Care Provider] - 11/11/18
== END 2018-11-09 14:34 | disposition home or self-care (01) ==
LOC: ER 13:35
DX: G89.29 Other chronic pain (principal); M25.512 Pain in left shoulder; I10 Essential (primary) hypertension; J44.9 Chronic obstructive pulmonary disease, unspecified
CPT/HCPCS: 99283

== ENCOUNTER 2019-03-12 03:06 | Emergency (ER) | payer BC ==
--- NOTE | 2019-03-12 07:25 | ER Document Report ---
ED General - General Chief Complaint: Neck Problem Stated Complaint: FEVER,NECK PAIN INTO JAW Time Seen by Provider: 03/12/19 07:11 Primary Care Provider: ISAAC CORTEZ MD [Primary Care Provider] - Follow up as needed TRAVEL OUTSIDE OF THE [place] IN LAST 30 DAYS: No - HPI Notes: Patient is a 53-year-old female who presents emergency department for evaluation. On Wednesday she had surgery at [place] on her right shoulder. She had her biceps tendon reattached, a "bone spur" removed. She states that on Wednesday and Wednesday she felt fevered. She took her temperature multiple times. Her T-max was 99.8. She denies any vomiting, although she has had some nausea associated with her pain. She denies any cough or shortness of breath. No sore throat. No abdominal pain. No chest leg swelling or pain, no urinary symptoms. Normal bowel movements. She was just concerned because now the pain from her shoulder seems to be radiating up into the side of her neck. She was concerned, believes she should have her arm checked out. - Related Data Allergies/Adverse Reactions: lovastatin [From Mevacor] Allergy (Severe, Verified 11/09/18 13:37) Home Medications: Lisinopril, statin, Claritin, stool softener, pain medication from surgery Past Medical History - General Information source: Patient - Social History Smoking Status: Never Smoker Chew tobacco use (# tins/day): No Frequency of alcohol use: None Drug Abuse: None Family History: Reviewed & Not Pertinent, Arthritis, CAD, CVA, DM, Hyperlip idemia, Hypertension, Thyroid Disfunction Patient has suicidal ideation: No Patient has homicidal ideation: No - Past Medical History Cardiac Medical History: Reports: Hx Heart Attack, Hx Hypercholesterolemia, Hx Hypertension Denies: Hx Atrial Fibrillation, Hx Congestive Heart Failure, Hx Coronary Artery Disease, Hx Peripheral Vascular Disease, Hx Pulmonary Embolism, Hx Heart Murmur Pulmonary Medical History: Reports: Hx Asthma, Hx Bronchitis, Hx COPD Denies: Hx Pneumonia, Hx Respiratory Failure, Hx Sleep Apnea, Hx Tuberculosis Neurological Medical History: Reports: Hx Migraine. Denies: Hx Cerebrovascular Accident, Hx Seizures, Hx Parkinson's Disease Endocrine Medical History: Denies: Hx Graves' Disease, Hx Hyperthyroidism, Hx Hypothyroidism Renal/ Medical History: Denies: Hx End Stage Renal Disease, Hx Kidney Stones, Hx Ovarian Cysts, Hx Peritoneal Dialysis, Hx Pelvic Inflammatory Disease Malignancy Medical History: Denies: Hx Breast Cancer, Hx Cervical Cancer, Hx L eukemia, Hx Lung Cancer, Hx Ovarian Cancer GI Medical History: Reports: Hx Gastroesophageal Reflux Disease. Denies: Hx Crohn's Disease, Hx Hiatal Hernia, Hx Irritable Bowel, Hx Liver Failure, Hx Pancreatitis, Hx Ulcer Musculoskeletal Medical History: Reports Hx Arthritis, Denies Hx Fibromyalgia, Denies Hx Multiple Sclerosis, Denies Hx Muscular Dystrophy, Reports Hx Musculoskeletal Deformity, Reports Hx Musculoskeletal Trauma, Denies Hx Systemic Lupus Erythematosus Psychiatric Medical History: Denies: Hx Bipolar Disorder, Hx Dementia, Hx Depression, Hx Post Traumatic Stress Disorder, Hx Schizophrenia Traumatic Medical History: Reports: Hx Fractures - SHOUDLER AND BACK Infectious Medical History: Denies: Hx HIV Past Surgical History: Reports: Hx Genitourinary Surgery - "bladder mesh" 2016, Hx Tonsillectomy - 1970, Hx Tubal Ligation. Denies: Hx Appendectomy, Hx Bowel Surgery, Hx Section, Hx Cholecystectomy, Hx Colostomy, Hx Coronary Artery Bypass Graft, Hx Gastric Bypass Surgery, Hx Herniorrhaphy, Hx Hysterectomy, Hx Mastectomy, Hx Pacemaker - Immunizations Immunizations up to date: No Hx Diphtheria, Pertussis, Tetanus Vaccination: Yes Review of Systems - Review of Systems Constitutional: See HPI EENT: No symptoms reported Cardiovascular: No symptoms reported Respiratory: No symptoms reported Gastrointestinal: No symptoms reported Genitourinary: No symptoms reported Musculoskeletal: See HPI Skin: No symptoms reported Neurological/Psychological: No symptoms reported Physical Exam - Vital signs Vitals: Temp Pulse Resp BP Pulse Ox 98.2 F 16 L 16 136/67 H 97 03/12/19 03:42 03/12/19 03:42 03/12/19 03:42 03/12/19 03:42 03/12/19 03:42 - Notes Notes: Vital signs reviewed, please refer to chart. Head is normocephalic, atraumatic. Pupils equal round, reactive to light. Neck is supple without meningismus. She does have some mild tenderness to palpation over the right sternocleidomastoid and scalene muscles. There is no overlying erythema, edema, induration. Heart is regular rate and rhythm. Lungs are clear to auscultation bilaterally. Abdomen is soft, nontender, normoactive bowel sounds throughout. Extremities without cyanosis, clubbing. Posterior calves are nontender. Peripheral pulses are equal. Skin is warm and dry. Surgical scars noted on the right anterior humeral head, consistent with recent surgery. Steri-Strips in place. No signs of erythema, edema, dehiscence, or bleeding. Patient with only mild edema of the fingers, good capillary refill, neurovascularly intact. Patient is awake, alert, neurological exam is nonfocal. Course - Re-evaluation Re-evalutation: 03/12/19 07:24 Patient presents emergency department for evaluation of fever. Her T-max was 99.8. At no point was she actually ever febrile. She has absolutely no systemic symptoms. She has no objective signs of any other postoperative causes of fever. No coughing. No shortness of breath. No posterior calf tenderness or leg edema. She has no urinary symptoms. No sore throat. We did discuss the possibility of atelectasis causing fever. She states she is using her incentive spirometer, she is encouraged to use it more. She voiced understanding to this. Otherwise she should follow-up with her surgeon, return to the ED with worsening new concerning symptoms of any sort. - Vital Signs Vital signs: Temp Pulse Resp BP Pulse Ox 98.2 F 88 16 136/67 H 97 03/12/19 03:42 03/12/19 05:27 03/12/19 03:42 03/12/19 03:42 03/12/19 03:42 Discharge - Discharge Clinical Impression: Neck pain on right side, Postop check Condition: Stable Disposition: HOME, SELF-CARE Instructions: Myalagia (Muscle Pain) (OM) Additional Instructions: No signs of infection were found on your exam today. Continue your incentive spirometer as prescribed. Continue your home pain medications as needed. Follow-up with your surgeon as scheduled. Follow-up with your primary care physician this week. Return to the emergency department with worsening or new concerning symptoms of any sort. Referrals: ISAAC CORTEZ MD [Primary Care Provider] - Follow up as needed
[2019-03-12 07:37] VITALS: BP 141/72
== END 2019-03-12 07:38 | disposition home or self-care (01) ==
LOC: ER 03:06
DX: M54.2 Cervicalgia (principal); Z98.890 Other specified postprocedural states; R50.9 Fever, unspecified; R68.84 Jaw pain; R11.0 Nausea; Z79.899 Other long term (current) drug therapy; I10 Essential (primary) hypertension; J44.9 Chronic obstructive pulmonary disease, unspecified
CPT/HCPCS: 99283

== ENCOUNTER 2019-04-26 04:52 | Emergency (ER) | payer BC ==
[2019-04-26] MEDS ORDERED: OXYCODONE-ACETAMINOPHEN 5-325 MG TABLET PO ONE (07:15)
[2019-04-26] MEDS ORDERED: ONDANSETRON 4 MG TAB.RAPDIS PO ONE (07:15)
[2019-04-26] MEDS ORDERED: HYDROCODONE/ACETAMINOPHEN 5-325 MG (6 TAB/ER DISP) ONE (07:50)
--- NOTE | 2019-04-26 08:01 | RADIOLOGY REPORT (SQ) ---
Right elbow three view on 04/26/2019 at 5:46 AM CLINICAL INDICATION: Right elbow pain after fall COMPARISON: None FINDINGS: There are no fractures. No joint effusion to suggest an occult fracture is noted. Visualized joints are well aligned. IMPRESSION: No acute bony abnormality.
--- NOTE | 2019-04-26 08:23 | RADIOLOGY REPORT (SQ) ---
EXAM DESCRIPTION: SHOULDER RIGHT 2 OR MORE VIEWS COMPLETED DATE/TIME: 04/26/2019 7:41 am REASON FOR STUDY: FALL, CAUGHT SELF WITH RIGTH ARM, LANDED ON KNEE COMPARISON: 10/02/2018 NUMBER OF VIEWS: Three views. TECHNIQUE: Internal rotation, external rotation, and Y view images acquired of the right shoulder. LIMITATIONS: None. FINDINGS: MINERALIZATION: Normal. BONES: No acute fracture. No worrisome bone lesions. JOINTS: There is widening of the AC joint. This is new from prior study. AC separation is suspected . Glenohumeral joint remains intact. VISUALIZED LUNGS AND RIBS: No pneumothorax. No rib fracture. SOFT TISSUES: No radiopaque foreign body. OTHER: No other significant finding. IMPRESSION: Mild AC separation. No fracture. TECHNICAL DOCUMENTATION: JOB ID: [id number] [employer]- All Rights Reserved Reading location - IP/workstation name: [email or web address]
--- NOTE | 2019-04-26 08:24 | RADIOLOGY REPORT (SQ) ---
EXAM DESCRIPTION: KNEE RIGHT 4 VIEWS COMPLETED DATE/TIME: 04/26/2019 7:41 am REASON FOR STUDY: FALL, CAUGHT SELF WITH RIGTH ARM, LANDED ON KNEE COMPARISON: 03/28/2015 NUMBER OF VIEWS: Four views. TECHNIQUE: AP, lateral, and both oblique radiographic images acquired of the right knee. LIMITATIONS: None. FINDINGS: MINERALIZATION: Normal. BONES: No acute fracture or dislocation. No worrisome bone lesions. JOINT: No effusion. SOFT TISSUES: No soft tissue swelling. No radio-opaque foreign body. OTHER: No other significant finding. IMPRESSION: NEGATIVE STUDY OF THE RIGHT KNEE. NO RADIOGRAPHIC EVIDENCE OF ACUTE INJURY. TECHNICAL DOCUMENTATION: JOB ID: [id number] [employer]- All Rights Reserved Reading location - IP/workstation name: [email or web address]
== END 2019-04-26 07:55 ==
LOC: ER 04:52
DX: Z53.21 Procedure and treatment not carried out due to patient leaving prior to being seen by health care provider (principal); M79.603 Pain in arm, unspecified

== ENCOUNTER 2019-07-05 01:52 | Emergency (ER) | payer BC ==
[2019-07-05] MEDS ORDERED: NORMAL SALINE 1000 ML 1,000 ML IV ONE (02:26)
[2019-07-05] MEDS ORDERED: ONDANSETRON HCL INJ/PF 4 MG/2 ML SDV IV ONE (02:26)
[2019-07-05] MEDS ORDERED: MORPHINE SULFATE 10 MG/ML INJ IV ONE (02:26)
--- NOTE | 2019-07-05 02:27 | ER Document Report ---
ED GI/ - General Chief Complaint: Abdominal Pain Stated Complaint: ABDOMINAL PAIN Time Seen by Provider: 07/05/19 02:13 Notes: Patient is a 54-year-old female that comes to the emergency department for chief complaint of upper abdominal pain. She states that she also vomited 6 times today and she vomited every time she tried to eat. She also states that she has urinary frequency that has been worsening over the past several days. She does report some bilateral flank pain but states she always has back pain and she cannot differentiate. Symptoms did start over the past 24 hours. She denies chest pain, fever, lower abdominal pain, abnormal bowel movements. She did have a bowel movement earlier this evening which was nonbloody. She reports history of tubal ligation, bladder sling, hypertension, hyperlipidemia, fatty liver. TRAVEL OUTSIDE OF THE [place] IN LAST 30 DAYS: No - Related Data Allergies/Adverse Reactions: lovastatin [From Mevacor] Allergy (Severe, Verified 11/09/18 13:37) Home Medications: Lisinpril. Loratadine. Albuterol. Tramadrol Past Medical History - General Information source: Patient - Social History Smoking Status: Never Smoker Frequency of alcohol use: None Drug Abuse: None Lives with: Family Family History: Reviewed & Not Pertinent, Arthritis, CAD, CVA, DM, Hyperlipidemia, Hypertension, Thyroid Disfunction Patient has suicidal ideation: No Patient has homicidal ideation: No - Past Medical History Cardiac Medical History: Reports: Hx Heart Attack, Hx Hypercholesterolemia, Hx Hypertension Denies: Hx Atrial Fibrillation, Hx Congestive Heart Failure, Hx Coronary Artery Disease, Hx Peripheral Vascular Disease, Hx Pulmonary Embolism, Hx Heart Murmur Pulmonary Medical History: Reports: Hx Asthma, Hx Bronchitis, Hx COPD Denies: Hx Pneumonia, Hx Respiratory Failure, Hx Sleep Apnea, Hx Tuberculosis Neurological Medical History: Reports: Hx Migraine. Denies: Hx Cerebrovascular Accident, Hx Seizures, Hx Parkinson's Disease Endocrine Medical History: Denies: Hx Graves' Disease, Hx Hyperthyroidism, Hx Hypothyroidism Renal/ Medical History: Denies: Hx End Stage Renal Disease, Hx Kidney Stones, Hx Ovarian Cysts, Hx Peritoneal Dialysis, Hx Pelvic Inflammatory Disease Malignancy Medical History: Denies: Hx Breast Cancer, Hx Cervical Cancer, Hx Leukemia, Hx Lung Cancer, Hx Ovarian Cancer GI Medical History: Reports: Hx Gastroesophageal Reflux Disease. Denies: Hx Crohn's Disease, Hx Hiatal Hernia, Hx Irritable Bowel, Hx Liver Failure, Hx Pancreatitis, Hx Ulcer Musculoskeletal Medical History: Reports Hx Arthritis, Denies Hx Fibromyalgia, Denies Hx Multiple Sclerosis, Denies Hx Muscular Dystrophy, Reports Hx Musculoskeletal Deformity, Reports Hx Musculoskeletal Trauma, Denies Hx Systemic Lupus Erythematosus Psychiatric Medical History: Denies: Hx Bipolar Disorder, Hx Dementia, Hx Depression, Hx Post Traumatic Stress Disorder, Hx Schizophrenia Traumatic Medical History: Reports: Hx Fractures - SHOUDLER AND BACK Infectious Medical History: Denies: Hx HIV Past Surgical History: Reports: Hx Genitourinary Surgery - "bladder mesh" 2016, Hx Tonsillectomy - 1970, Hx Tubal Ligation. Denies: Hx Appendectomy, Hx Bowel Surgery, Hx Section, Hx Cholecystectomy, Hx Colostomy, Hx Coronary Artery Bypass Graft, Hx Gastric Bypass Surgery, Hx Herniorrhaphy, Hx Hysterectomy, Hx Mastectomy, Hx Pacemaker - Immunizations Immunizations up to date: No Hx Diphtheria, Pertussis, Tetanus Vaccination: Yes Review of Systems - Review of Systems Constitutional: No symptoms reported EENT: No symptoms reported Cardiovascular: No symptoms reported Respiratory: No symptoms reported Gastrointestinal: See HPI Genitourinary: See HPI Female Genitourinary: No symptoms reported Musculoskeletal: No symptoms reported Skin: No symptoms reported Hematologic/Lymphatic: No symptoms reported Neurological/Psychological: No symptoms reported Physical Exam - Vital signs Vitals: Temp Pulse Resp BP Pulse Ox 97.8 F 83 17 115/63 98 07/05/19 02:00 07/05/19 02:00 07/05/19 02:00 07/05/19 02:00 07/05/19 02:00 - Notes Notes: GENERAL: Patient slightly restless and appears mildly uncomfortable HEAD: Normocephalic, atraumatic. EYES: Pupils equal, round, and reactive to light. Extraocular movements intact. ENT: Oral mucosa moist, tongue midline. Oropharynx unremarkable. Airway patent. NECK: Full range of motion. Supple. Trachea midline. LUNGS: Clear to auscultation bilaterally, no wheezes, rales, or rhonchi. No respiratory distress. HEART: Regular rate and rhythm. No murmur ABDOMEN: Generalized tenderness, worse in the upper abdomen generally. Bowel sounds present throughout. No guarding. GENITOURINARY: Deferred EXTREMITIES: Moves all 4 extremities spontaneously. No edema, normal radial and dorsalis pedis pulses bilaterally. No cyanosis. BACK: no cervical, thoracic, lumbar midline tenderness. No saddle anesthesia, normal distal neurovascular exam. Moves all extremities in full range of motion. NEUROLOGICAL: Alert and oriented x3. Normal speech. Cranial nerves II through XII grossly intact. PSYCH: Normal affect, normal mood. SKIN: Warm, dry, normal turgor. No rashes or lesions noted. Course - Re-evaluation Re-evalutation: Patient with some tenderness of the upper and lower abdomen, this is general, slightly increased in the upper abdomen. There is no guarding or rigidity. No overt CVA tenderness. Vital signs unremarkable, no fever. CBC, chemistry, lipase unremarkable. Ultrasound shows fatty liver but no concerning findings including normal renal evaluation. Urine indicates a pyelonephritis with white blood cell clumps. Based on patient's urinary symptoms, vomiting, work-up I suspect this is developing pyelonephritis. Abdo men completely benign on reevaluation. Low suspicion of acute abdomen. Based on her slowly progressive symptoms I have a low suspicion of ureterolithiasis as well. Discussed options. Patient will be treated with antibiotics, symptom management, discussed follow-up and return precautions at length. Patient states understanding and agreement. Well-appearing and asymptomatic at time of discharge. - Vital Signs Vital signs: Temp Pulse Resp BP Pulse Ox 98.2 F 83 18 133/74 H 100 07/05/19 05:31 07/05/19 05:31 07/05/19 05:31 07/05/19 05:31 07/05/19 05:31 - Laboratory Result Diagrams: 07/05/19 03:00 07/05/19 03:00 Laboratory results interpreted by me: 07/05/19 03:00 Urine Protein 30 H Urine Blood SMALL H Urine Nitrite POSITIVE H Ur Leukocyte Esterase LARGE H Discharge - Discharge Clinical Impression: Flank pain Vomiting Qualifiers: Vomiting type: unspecified Vomiting Intractability: non-intractable Nausea presence: with nausea Qualified Code(s): R11.2 - Nausea with vomiting, unspecified Abdominal pain Qualifiers: Abdominal location: upper abdomen, unspecified Qualified Code(s): R10.10 - Upper abdominal pain, unspecified Urinary tract infection Qualifiers: Urinary tract infection type: site unspecified Hematuria presence: without hematuria Qualified Code(s): N39.0 - Urinary tract infection, site not specified Condition: Stable Disposition: HOME, SELF-CARE Additional Instructions: Your ultrasound does not show any concerning findings. Your evaluation is consistent with a developing kidney infection. Take antibiotics as prescribed, take Zofran if needed for nausea, the provided pain medication if needed or alternatively your tramadol for pain if needed. Follow closely with primary care for additional management. Return if you worsen including severe worsening pain, uncontrolled vomiting, fever, or any other concerning symptoms. Prescriptions: Cephalexin Monohydrate [Keflex 500 mg Capsule] 500 mg PO BID 7 Days #14 capsule Ondansetron [Zofran Odt 4 mg Tablet] 1 - 2 tab PO Q4H PRN #15 tab.rapdis PRN Reason: For Nausea/Vomiting
[2019-07-05 03:15] LABS: ABSOLUTE EOSINOPHILS # (AUTO) 0.1 10^3/uL (0.0-0.6); ABSOLUTE LYMPHOCYTES (AUTO) 1.8 10^3/uL (0.5-4.7); ABSOLUTE MONOCYTES (AUTO) 0.7 10^3/uL (0.1-1.4); ABSOLUTE NEUT (AUTO) 4.3 10^3/uL (1.7-8.2); BASOPHILS % (AUTO) 0.7 % (0-2); HEMOGLOBIN 12.7 g/dL (12.0-15.5); LYMPHOCYTES % (AUTO) 25.9 % (13-45); MEAN CORPUSCULAR HEMOGLOBIN 32.1 pg (27.0-33.4); MEAN CORPUSCULAR HGB CONC 35.2 g/dL (32.0-36.0); MEAN CORPUSCULAR VOLUME 91 fl (80-97); PLATELET COUNT 165 10^3/uL (150-450); RED BLOOD COUNT 3.95 10^6/uL (3.72-5.28); RED CELL DISTRIBUTION WIDTH 13.7 % (11.5-14.0); SEGMENTED NEUTROPHILS % (AUTO) 61.4 % (42-78); TOTAL CELLS COUNTED % (AUTO) 100 %; WHITE BLOOD COUNT 7.1 10^3/uL (4.0-10.5)
[2019-07-05 03:24] LABS: APPEARANCE,URINE CLOUDY; BILIRUBIN,URINE NEGATIVE (NEGATIVE); COLOR,URINE YELLOW; GLUCOSE, URINE NEGATIVE (NEGATIVE); KETONES,URINE NEGATIVE (NEGATIVE); LEUKOCYTE ESTERASE,URINE LARGE (NEGATIVE); NITRITE,URINE POSITIVE (NEGATIVE); PROTEIN,URINE 30 mg/dL (NEGATIVE); URINE SPECIFIC GRAVITY 1.012; UROBILINOGEN,URINE NEGATIVE mg/dL (<2.0)
[2019-07-05 03:27] LABS: ALBUMIN 4.2 g/dL (3.5-5.0); ALKALINE PHOSPHATASE 91 U/L (38-126); ANION GAP 8 (5-19); ASPARTATE AMINO TRANSFERASE 30 U/L (14-36); BILIRUBIN,DIRECT 0.3 mg/dL (0.0-0.4); BILIRUBIN,TOTAL 0.8 mg/dL (0.2-1.3); BLOOD UREA NITROGEN 10 mg/dL (7-20); CALCIUM 9.5 mg/dL (8.4-10.2); CARBON DIOXIDE 29 mmol/L (22-30); CHLORIDE 104 mmol/L (98-107); GLUCOSE 97 mg/dL (75-110); POTASSIUM 4.2 mmol/L (3.6-5.0); TOTAL PROTEIN 7.2 g/dL (6.3-8.2)
[2019-07-05] MEDS ORDERED: CEFTRIAXONE 1 GM/D5W RTU 1 GM/50 ML RTUPB IV ONE (03:44)
--- NOTE | 2019-07-05 04:22 | RADIOLOGY REPORT (SQ) ---
EXAM DESCRIPTION: US ABDOMEN LIMITED COMPLETED DATE/TME: 07/05/2019 02:25 CLINICAL HISTORY: 54 years, Female, RUQ pain, vomiting COMPARISON: None. TECHNIQUE: Limited right upper quadrant ultrasound LIMITATIONS: None. FINDINGS: Echogenic appearance to the liver consistent with fatty infiltrative change. No gallstones or gallbladder wall thickening. The CBD measures 2.8 mm. Pancreas not well seen due to bowel gas. The visualized abdominal aorta, inferior vena cava, right kidney are unremarkable. No ascites IMPRESSION: Fatty infiltrative change to the liver. Remainder unremarkable copyright 2011 [employer]- All Rights Reserved
[2019-07-05] MEDS ORDERED: HYDROCODONE/ACETAMINOPHEN 5-325 MG (6 TAB/ER DISP) PO PRN (04:51)
[2019-07-05] MEDS ORDERED: ONDANSETRON ODT 4 MG TAB (6 TAB/ER DISP) PO PRN (04:51)
[2019-07-05 05:33] VITALS: BP 133/74
== END 2019-07-05 05:31 | disposition home or self-care (01) ==
LOC: ER 01:52
DX: N39.0 Urinary tract infection, site not specified (principal); R10.10 Upper abdominal pain, unspecified; R10.9 Unspecified abdominal pain; R10.817 Generalized abdominal tenderness; R11.2 Nausea with vomiting, unspecified; R35.0 Frequency of micturition; K76.0 Fatty (change of) liver, not elsewhere classified; I10 Essential (primary) hypertension; J44.9 Chronic obstructive pulmonary disease, unspecified
CPT/HCPCS: 99284; 96361; 96375; 96365; 36415; 87086; 83690; 85025; 87088; 80053; 81001; 87186; 76705; J2270; J2405; J7030; J0696

== ENCOUNTER 2020-02-06 04:30 | Emergency (ER) | payer BC ==
[2020-02-06 06:01] LABS: ABSOLUTE EOSINOPHILS # (AUTO) 0.2 10^3/uL (0.0-0.6); ABSOLUTE LYMPHOCYTES (AUTO) 1.5 10^3/uL (0.5-4.7); ABSOLUTE MONOCYTES (AUTO) 0.7 10^3/uL (0.1-1.4); ABSOLUTE NEUT (AUTO) 5.8 10^3/uL (1.7-8.2); BASOPHILS % (AUTO) 0.5 % (0-2); HEMATOCRIT 39.9 % (36.0-47.0); HEMOGLOBIN 14.2 g/dL (12.0-15.5); LYMPHOCYTES % (AUTO) 18.5 % (13-45); MEAN CORPUSCULAR HEMOGLOBIN 32.2 pg (27.0-33.4); MEAN CORPUSCULAR HGB CONC 35.5 g/dL (32.0-36.0); MEAN CORPUSCULAR VOLUME 91 fl (80-97); MONOCYTES % (AUTO) 8.4 % (3-13); PLATELET COUNT 179 10^3/uL (150-450); RED CELL DISTRIBUTION WIDTH 13.5 % (11.5-14.0); SEGMENTED NEUTROPHILS % (AUTO) 70.6 % (42-78); TOTAL CELLS COUNTED % (AUTO) 100 %; WHITE BLOOD COUNT 8.2 10^3/uL (4.0-10.5)
[2020-02-06 06:21] LABS: ALBUMIN 4.7 g/dL (3.5-5.0); ALKALINE PHOSPHATASE 101 U/L (38-126); ANION GAP 12 (5-19); ASPARTATE AMINO TRANSFERASE 40 U/L (14-36); BILIRUBIN,DIRECT 0.3 mg/dL (0.0-0.4); BILIRUBIN,TOTAL 0.8 mg/dL (0.2-1.3); BLOOD UREA NITROGEN 11 mg/dL (7-20); CALCIUM 9.7 mg/dL (8.4-10.2); CARBON DIOXIDE 28 mmol/L (22-30); CHLORIDE 100 mmol/L (98-107); CREATINE KINASE 61 U/L (30-135); GLUCOSE 98 mg/dL (75-110); POTASSIUM 4.4 mmol/L (3.6-5.0); TOTAL PROTEIN 7.5 g/dL (6.3-8.2)
--- NOTE | 2020-02-06 06:39 | RADIOLOGY REPORT (SQ) ---
EXAM DESCRIPTION: XR CHEST 1 VIEW COMPLETED DATE/TME: 02/06/2020 05:22 CLINICAL HISTORY: 54 years Female, PAIN COMPARISON: 03/30/2016 NUMBER OF VIEWS/TECHNIQUE: 1/AP FINDINGS: Adequate lung volume, minimal chronic atelectasis or scar of the left lower lobe, normal cardiac silhouette, and intact bony thorax. IMPRESSION: No acute cardiopulmonary findings.
[2020-02-06 06:47] LABS: CREATINE KINASE MB 0.83 ng/mL (<4.55)
[2020-02-06 06:52] LABS: TROPONIN I < 0.012 ng/mL
--- NOTE | 2020-02-06 07:07 | ER Document Report ---
ED General - General Chief Complaint: Chest Pain Stated Complaint: CHEST/NECK/HEAD/PAIN Time Seen by Provider: 02/06/20 06:16 Primary Care Provider: ISAAC CORTEZ MD [Primary Care Provider] - Follow up in 3-5 days (For referral for possible stress testing) Notes: 54-year-old lady presents with pain in her left chest neck rating down her left arm to her hand intermittent for minutes at a time over the last 3 hours. Started 2 AM. 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 She denies shortness of breath nausea vomiting with this pain. She said she has had "mild heart attack" in distant past but was unable to complete a stress test and has not been cathed. No focal weakness numbness pain is absent at the time of my interview. TRAVEL OUTSIDE OF THE [place] IN LAST 30 DAYS: No - Related Data Allergies/Adverse Reactions: lovastatin [From Mevacor] Allergy (Severe, Verified 02/06/20 05:13) Past Medical History - General Information source: Patient - Social History Smoking Status: Former Smoker Frequency of alcohol use: None Drug Abuse: None Family History: Reviewed & Not Pertinent, Arthritis, CAD, CVA, DM, Hyperlipidemia, Hypertension, Thyroid Disfunction Patient has homicidal ideation: No - Past Medical History Cardiac Medical History: Reports: Hx Heart Attack, Hx Hypercholesterolemia, Hx Hypertension Denies: Hx Atrial Fibrillation, Hx Congestive Heart Failure, Hx Coronary Artery Disease, Hx Peripheral Vascular Disease, Hx Pulmonary Embolism, Hx Heart Murmur Pulmonary Medical History: Reports: Hx Asthma, Hx Bronchitis, Hx COPD Denies: Hx Pneumonia, Hx Respiratory Failure, Hx Sleep Apnea, Hx Tuberculosis Neurological Medical History: Reports: Hx Migraine. Denies: Hx Cerebrovascular Accident, Hx Seizures, Hx Parkinson's Disease Endocrine Medical History: Denies: Hx Graves' Disease, Hx Hyperthyroidism, Hx Hypothyroidism Renal/ Medical History: Denies: Hx End Stage Renal Disease, Hx Kidney Stones, Hx Ovarian Cysts, Hx Peritoneal Dialysis, Hx Pelvic Inflammatory Disease Malignancy Medical History: Denies: Hx Breast Cancer, Hx Cervical Cancer, Hx Leukemia, Hx Lung Cancer, Hx Ovarian Cancer GI Medical History: Reports: Hx Gastroesophageal Reflux Disease. Denies: Hx Crohn's Disease, Hx Hiatal Hernia, Hx Irritable Bowel, Hx Liver Failure, Hx Panc reatitis, Hx Ulcer Musculoskeletal Medical History: Reports Hx Arthritis, Denies Hx Fibromyalgia, Denies Hx Multiple Sclerosis, Denies Hx Muscular Dystrophy, Reports Hx Muscul oskeletal Deformity, Reports Hx Musculoskeletal Trauma, Denies Hx Systemic Lupus Erythematosus Psychiatric Medical History: Denies: Hx Bipolar Disorder, Hx Dementia, Hx Depression, Hx Post Traumatic Stress Disorder, Hx Schizophrenia Traumatic Medical History: Reports: Hx Fractures - SHOUDLER AND BACK Infectious Medical History: Denies: Hx HIV Past Surgical History: Reports: Hx Genitourinary Surgery - "bladder mesh" 2017, Hx Tonsillectomy - 1970, Hx Tubal Ligation. Denies: Hx Appendectomy, Hx Bowel Surgery, Hx Section, Hx Cholecystectomy, Hx Colostomy, Hx Coronary Artery Bypass Graft, Hx Gastric Bypass Surgery, Hx Herniorrhaphy, Hx Hysterectomy, Hx Mastectomy, Hx Pacemaker - Immunizations Immunizations up to date: No Hx Diphtheria, Pertussis, Tetanus Vaccination: Yes Review of Systems - Review of Systems Notes: REVIEW OF SYSTEMS GEN: Denies fever, chills, weight loss ENT: Denies sore throat, nasal discharge, ear pain EYES: Denies blurry vision, eye pain, discharge CV: Chest pain RESP: Denies cough, shortness of breath, wheezing GI: Denies abdominal pain, nausea, vomiting, diarrhea MSK: Neck pain shoulder pain arm pain SKIN: Denies rash, skin lesions LYMPH: Denies swollen glands/lymph nodes NEURO: Tingling no weakness or coordination problems PSYCH: Denies depression, suicidal or homicidal ideation PHYSICAL EXAMINATION General: No acute distress, well-nourished Head: Atraumatic, normocephalic ENT: Mouth normal, oropharynx moist, no exudates or tonsillar enlargement Eyes: Conjunctiva normal, pupils equal, lids normal Neck: No JVD, supple, no guarding CVS: Normal rate, regular rhythm, no murmurs Resp: No resp distress, equal and normal breath sounds bilaterally GI: Nondistended, soft, no tenderness to palpation, no rebound or guarding Ext: No deformities, no edema, normal range of motion in upper and lower ext Back: No CVA or midline TTP Skin: No rash, warm Lymphatic: No lymphadeopathy noted Neuro: Awake, alert. Face symmetric. GCS 15. 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 Physical Exam - Vital signs Vitals: Temp Pulse Resp BP Pulse Ox 97.8 F 81 18 137/70 H 99 02/06/20 05:02 02/06/20 05:02 02/06/20 05:02 02/06/20 05:02 02/06/20 05:02 Course - Re-evaluation Re-evalutation: 02/06/20 07:06 Atypical chest pain in a patient with no neck disease likely reflects radiculopathy or intermittent radicular pain Time course of pain would argue for a 2 troponin ruleout, heart score is between 23 and can likely be followed up as an outpatient for stress test given lack of pain in the ED, and normal EKG. 02/06/20 15:43 Repeat strep negative EKG normal. Stable for discharge. I have discussed with the patient there likely diagnosis, aftercare plan, follow-up plans and my usual and customary return precautions. They verbalized understanding of this. - Vital Signs Vital signs: Temp Pulse Resp BP Pulse Ox 97.9 F 72 18 134/70 H 96 02/06/20 11:13 02/06/20 11:13 02/06/20 11:13 02/06/20 11:13 02/06/20 11:13 - Laboratory Result Diagrams: 02/06/20 05:44 02/06/20 05:44 Laboratory results interpreted by me: 02/06/20 05:44 AST 40 H ALT 40 H - Diagnostic Test Radiology reviewed: Image reviewed, Reports reviewed - EKG Interpretation by Ut EKG shows normal: Sinus rhythm Rate: Normal Rhythm: NSR When compared to previous EKG there are: Previous EKG unavailable - Specifically no ST or T wave changes concerning for ischemia Discharge - Discharge Clinical Impression: Chest wall pain Condition: Good Disposition: HOME, SELF-CARE Instructions: Chest Pain of Unclear Cause ([facility]) Referrals: ISAAC CORTEZ MD [Primary Care Provider] - Follow up in 3-5 days (For referral for possible stress testing)
[2020-02-06 11:14] VITALS: BP 134/70
--- NOTE | 2020-02-06 17:04 | EKG REPORT ---
SEVERITY:- ABNORMAL ECG - SINUS RHYTHM LEFT VENTRICULAR HYPERTROPHY : Confirmed by: Carissa Redman MD 06-Feb-2020 17:03:11
== END 2020-02-06 11:28 | disposition home or self-care (01) ==
LOC: ER 04:30
DX: R07.89 Other chest pain (principal); M54.2 Cervicalgia; R20.2 Paresthesia of skin; I10 Essential (primary) hypertension; J44.9 Chronic obstructive pulmonary disease, unspecified; Z88.8 Allergy status to other drugs, medicaments and biological substances; Z87.891 Personal history of nicotine dependence; Z82.49 Family history of ischemic heart disease and other diseases of the circulatory system
CPT/HCPCS: 36415; 71045; 80053; 82550; 82553; 84484; 85025; 93005; 93010; 99285

== ENCOUNTER → 2020-05-13 | Outpatient (CLI) | payer BC ==
--- NOTE | 2020-05-13 10:43 | XCELERA REPORT ---
[address] [address] Transthoracic Echocardiogram Report Name: JA CHENG Age: 54 yrs Gender: Female : 1965 Patient Status: Preadmit Patient Location: Study Date: 05/13/2020 08:58 AM History: HTN Dyspnea Height: 62 in Weight: 211 lb BSA: 2.0 m2 Procedure: A complete two-dimensional transthoracic echocardiogram was performed (2D, M-mode, spectral and color flow Doppler). The study was technically difficult with many images being suboptimal in quality. Reason For Study: HTN, SOB Previous Evaluation: A previous study was performed on 10/24/2010 LVEF Normal. History: Shortness of breath. HTN. Ordering Physician: BRENDAN HART Performed By: Mica Bourgeois Interpretation Summary Left ventricular systolic function is low normal. The Ejection Fraction estimate is 50-55% The right ventricle is normal in size and function. There is no mitral regurgitation noted. There is no aortic valve stenosis There is a trace or physiologic amount of tricuspid regurgitation There is no pericardial effusion. MMode/2D Measurements & Calculations RVDd: 2.3 cm LVIDd: 5.4 cm FS: 28.6 % Ao root diam: IVSd: 0.95 cm LVIDs: 3.9 cm EDV(Teich): 2.5 cm LVPWd: 0.89 cm 143.5 ml Ao root area: ESV(Teich): 65.1 ml5.0 cm2 EF(Teich): 54.6 % EDV(MOD-sp4): SV(MOD-sp4): 60.2 ml 26.6 ml ESV(MOD-sp4): 33.6 ml EF(MOD-sp4): 44.2 % Doppler Measurements & Calculations MV E max abdi: MV dec slope: Ao V2 max: LV V1 max P.2 cm/sec 156.2 cm/sec 4.0 mmHg MV A max abdi: 372.8 cm/sec2 Ao max P.8 mmHgLV V1 mean P.3 cm/sec MV dec time: 0.19 sec 2.2 mmHg Ao V2 mean: MV E/A: 0.80 108.7 cm/sec LV V1 max: Ao mean P.6 cm/sec 5.4 mmHg LV V1 mean: Ao V2 VTI: 32.7 cm 68.6 cm/sec LV V1 VTI: 21.2 cm PA V2 max: PI end-d abdi: 73.9 cm/sec 100.9 cm/sec PA max P.2 mmHg Left Ventricle The left ventricle is normal in size. There is mild concentric left ventricular hypertrophy. Left ventricular systolic function is low normal. The Ejection Fraction estimate is 50-55%. Doppler measurements suggest impaired left ventricular relaxation, which is associated with grade I/IV or mild diastolic dysfunction. No regional wall motion abnormalities noted. Right Ventricle The right ventricle is normal in size and function. Atria The right atrium is normal. The left atrial size is normal. The interatrial septum is intact with no evidence for an atrial septal defect. There is no Doppler evidence for an interatrial shunt. Mitral Valve The mitral valve leaflets appear normal. There is no evidence of stenosis, fluttering, or prolapse. There is no evidence of mitral valve prolapse. There is no mitral valve stenosis. There is no mitral regurgitation noted. Aortic Valve The aortic valve is normal in structure and function. The aortic valve is trileaflet. The aortic valve opens well. There is no aortic valve stenosis. No aortic regurgitation is present. Tricuspid Valve The tricuspid valve is normal in structure and function. There is no tricuspid stenosis. There is a trace or physiologic amount of tricuspid regurgitation. Tricuspid regurgitation jet envelope not well defined to measure RV systolic pressure accurately. Great Vessels The aortic root is normal size. The inferior vena cava appeared normal and decreased > 50% with respiration (RAP 5-10 mmHg). Effusions There is no pericardial effusion. : BRENDAN HART Anil
--- NOTE | 2020-05-13 19:54 | DRAGON STRESS TEST REPORT ---
Exercise stress test Date: 05/13/2020 Referring physician: Davi Nguyen MD Performing physician: Ryley Wynn MD Indication: Chest pain Clinical history 54-year-old lady with hypertension and dyslipidemia with episodic chest pain. There is family history of coronary artery disease with the patient's father succumbing to myocardial infarction at age 56. Procedure The patient presented to the stress lab. The patient exercised on the treadmill according to Scott protocol for a total of 5 minutes and 10 seconds achieving a maximum heart rate of 121 bpm which was 72 % of maximum predicted of 166 bpm. The maximum workload was 7 METS. The presenting EKG showed sinus rhythm at 73 bpm. The initial blood pressure was 133/79 mmHg. Upon exercise the heart rate juan luis to a maximum of 121beats per minute and the blood pressure juan luis to a maximum of 173/82 mmHg. The patient had appropriate increment in heart rate and blood pressure with exercise. The exercise EKG was negative for myocardial ischemia. The recovery EKG did not reveal any evidence of myocardial ischemia. The patient tolerated the exercise poorly and reported chest tightness as well as dyspnea which resulted in the test being aborted prematurely. T The patient's EKG and vital signs were monitored throughout the procedure. Conclusion Nondiagnostic exercise treadmill test test due to suboptimal effort tolerance and symptoms resulting in premature termination. Suboptimal exercise tolerance Normal heart rate and blood pressure response to exercise. We will arrange for follow-up to discuss the test results. [facility]
== END ==
LOC: SP 08:31
PROVIDERS: ATTEND Internal Medicine
DX: R07.9 Chest pain, unspecified (principal); R06.02 Shortness of breath; I10 Essential (primary) hypertension; I25.9 Chronic ischemic heart disease, unspecified
CPT/HCPCS: 93017; 93306

== ENCOUNTER → 2020-05-21 | Outpatient (CLI) | payer BC ==
[2020-05-21 11:40] VITALS: BP 138/68
--- NOTE | 2020-05-21 11:40 | ER [facility] ASSESSMENT REPORT ---
Intake - In the Last 14 days Have you traveled outside [place]?: No Have you been in close contact with someone CONFIRMED: No Worked in Healthcare?: No - Symptoms Subjective Fever([place] feverish): No Chills: No Muscule Aches: No Runny Nose: No Sore Throat: No Cough (New or worsening chronic cough): Yes Shortness of breath: No Nausea or Vomiting: No Headache: No Abdominal Pain: No Diarrhea(3 or more loose stools in last 24 hours): No - Do you have any of the following Chronic lung disease: Asthma or emphysema or COPD: Yes Cystic Fibrosis: No Diabetes: No High Blood Pressure: Yes Cardiovascular Disease: No Chronic Kidney Disease: No Chronic Liver Disease: No Chronic blood disorder like Sickle Cell Disease: No Weak immune system due to disease or medication: No Neurologic condition that limits movement: No Developmental delay - Moderate to Severe: No Recent (within past 2 weeks) or current : No Morbid Obesity (>100 pounds over ideal weight): No - Objective Temperature: 98.9 F Pulse Rate: 84 Respiratory Rate: 16 Blood Pressure: 138/68 O2 Sat by Pulse Oximetry: 95 Objective: Given above, testing performed: If Testing Performed: Test Specimen Type Sent to General - General Information source: Patient Notes: Patient presents to the [facility] for screening for the coronavirus. Patient reports cough for the past 4 days. Patient has underlying history of asthma and hypertension. - Related Data Allergies/Adverse Reactions: lovastatin [From Mevacor] Allergy (Severe, Verified 02/06/20 05:13) Past Medical History - General Information source: Patient - Social History Smoking Status: Never Smoker Family History: Reviewed & Not Pertinent, Arthritis, CAD, CVA, DM, Hyperlipidemia, Hypertension, Thyroid Disfunction - Past Medical History Cardiac Medical History: Reports: Hx Heart Attack, Hx Hypercholesterolemia, Hx Hypertension Denies: Hx Atrial Fibrillation, Hx Congestive Heart Failure, Hx Coronary Artery Disease, Hx Peripheral Vascular Disease, Hx Pulmonary Embolism, Hx Heart Murmur Pulmonary Medical History: Reports: Hx Asthma, Hx Bronchitis, Hx COPD Denies: Hx Pneumonia, Hx Respiratory Failure, Hx Sleep Apnea, Hx Tuberculosis Neurological Medical History: Reports: Hx Migraine. Denies: Hx Cerebrovascular Accident, Hx Seizures, Hx Parkinson's Disease Endocrine Medical History: Denies: Hx Graves' Disease, Hx Hyperthyroidism, Hx Hypothyroidism GI Medical History: Reports: Hx Gastroesophageal Reflux Disease Musculoskeletal Medical History: Reports Hx Arthritis, Denies Hx Fibromyalgia, Denies Hx Multiple Sclerosis, Denies Hx Muscular Dystrophy, Reports Hx Musculoskeletal Deformity, Reports Hx Musculoskeletal Trauma, Denies Hx Systemic Lupus Erythematosus Psychiatric Medical History: Denies: Hx Bipolar Disorder, Hx Dementia, Hx Depression, Hx Post Traumatic Stress Disorder, Hx Schizophrenia Traumatic Medical History: Reports: Hx Fractures - SHOUDLER AND BACK Infectious Medical History: Denies: Hx HIV Past Surgical History: Reports: Hx Genitourinary Surgery - "bladder mesh" 2016, Hx Tonsillectomy - 1970, Hx Tubal Ligation. Denies: Hx Appendectomy, Hx Bowel Surgery, Hx Section, Hx Cholecystectomy, Hx Colostomy, Hx Coronary Artery Bypass Graft, Hx Gastric Bypass Surgery, Hx Herniorrhaphy, Hx Hysterectomy, Hx Mastectomy, Hx Pacemaker Physical Exam - Notes Notes: Full physical exam could not be performed due to covid 19 isolation protocols. Constitutional: Nontoxic appearance, no acute distress Eyes: Nonicteric, extraocular movements intact, sclera clear Cardiovascular: Heart rate and rhythm regular, no JVD Respiratory: Breath sounds clear bilaterally, nonlabored breathing, no use of accessory muscles, no tachypnea Gastrointestinal: Abdomen not distended Muculoskeletal: Moves all extremities well Skin: Normal color Neuro: Awake alert oriented, normal speech Psych: Normal mood and affect Diagnostic Results Laboratory Results: Patient presents with upper respiratory symptoms worrisome for possible Covid 19. Patient does not have emergency worrying symptoms such as difficulty breathing, shortness of breath, chest pain, pressure, confusion or cyanosis. Patient appears suitable for discharge as vital signs are stable and patient is nontoxic in appearance. Good return precautions have been discussed with patient, patient verbalized understanding and is agreeable with discharge plan of care at this time. Patient Education/Counseling Counseling/Education: Patient was provided with discharge information including: As a person under investigation for Covid 19, the [place] department of Health and Human Services, division of public health advises you to adhere to the following guidance until your test results are reported to you. If your test result is positive, you will receive additional information from your provider and your local health department at that time. Remain at home until you are cleared by the health provider or public health authorities. Keep a log of visitors to your home, notify any visitors to your home of your isolation status. If you plan to move to a new address or leave the county, notify the local health department in your County. Call your doctor or seek care if you have an urgent medical need. Before seeking medical care, call ahead to get instructions from the provider before arriving at the medical office clinic or hospital. Notify them that you are being tested for the virus that causes Covid 19 so that arrangements can be made, as necessary, to prevent transmission to others in the healthcare setting. Next, notify the local health department in your county. If a medical emergency arises and you need to call 911, inform the first responders that you are being tested for the virus that causes Covid 19. Next, notify the local health department in your county. [facility] Discharge - Discharge Clinical Impression: Encounter for screening laboratory testing for COVID-19 virus Condition: Stable Disposition: Home; Selfcare
== END ==
LOC: RDC 10:49
PROVIDERS: ATTEND Nurse Practitioner Family
DX: Z20.828 Contact with and (suspected) exposure to other viral communicable diseases (principal)
CPT/HCPCS: U0003; C9803; 87635; 99201; 99211

== ENCOUNTER → 2020-06-25 | Outpatient (CLI) | payer BC ==
[2020-06-25 16:26] LABS: ABSOLUTE EOSINOPHILS # (AUTO) 0.2 10^3/uL (0.0-0.6); ABSOLUTE LYMPHOCYTES (AUTO) 1.8 10^3/uL (0.5-4.7); ABSOLUTE MONOCYTES (AUTO) 0.6 10^3/uL (0.1-1.4); ABSOLUTE NEUT (AUTO) 3.8 10^3/uL (1.7-8.2); BASOPHILS % (AUTO) 0.6 % (0-2); EOSINOPHILS % (AUTO) 2.7 % (0-6); HEMATOCRIT 37.3 % (36.0-47.0); HEMOGLOBIN 13.2 g/dL (12.0-15.5); LYMPHOCYTES % (AUTO) 28.5 % (13-45); MEAN CORPUSCULAR HEMOGLOBIN 32.5 pg (27.0-33.4); MEAN CORPUSCULAR HGB CONC 35.4 g/dL (32.0-36.0); MEAN CORPUSCULAR VOLUME 92 fl (80-97); MONOCYTES % (AUTO) 9.1 % (3-13); PLATELET COUNT 170 10^3/uL (150-450); RED BLOOD COUNT 4.05 10^6/uL (3.72-5.28); RED CELL DISTRIBUTION WIDTH 13.6 % (11.5-14.0); SEGMENTED NEUTROPHILS % (AUTO) 59.1 % (42-78); TOTAL CELLS COUNTED % (AUTO) 100 %; WHITE BLOOD COUNT 6.4 10^3/uL (4.0-10.5)
--- NOTE | 2020-06-25 16:38 | RADIOLOGY REPORT (SQ) ---
EXAM DESCRIPTION: CHEST 2 VIEWS IMAGES COMPLETED DATE/TIME: 06/25/2020 4:06 pm REASON FOR STUDY: PRE OP TESTING COMPARISON: 02/06/2020 EXAM PARAMETERS: NUMBER OF VIEWS: two views TECHNIQUE: Digital Frontal and Lateral radiographic views of the chest acquired. RADIATION DOSE: NA LIMITATIONS: none FINDINGS: LUNGS AND PLEURA: No opacities, masses or pneumothorax. No pleural effusion. MEDIASTINUM AND HILAR STRUCTURES: No masses or contour abnormalities. HEART AND VASCULAR STRUCTURES: Heart normal size. No evidence for failure. BONES: No acute findings. HARDWARE: None in the chest. OTHER: No other significant finding. IMPRESSION: 1. No significant interval changes since the prior study dated 02/06/2020. No acute fin dings. TECHNICAL DOCUMENTATION: JOB ID: [id number] 2010 [employer]- All Rights Reserved Reading location - IP/workstation name: [email or web address]
[2020-06-25 16:45] LABS: ANION GAP 10 (5-19); BLOOD UREA NITROGEN 11 mg/dL (7-20); CALCIUM 9.2 mg/dL (8.4-10.2); CARBON DIOXIDE 26 mmol/L (22-30); CHLORIDE 101 mmol/L (98-107); GLUCOSE 99 mg/dL (75-110); POTASSIUM 4.3 mmol/L (3.6-5.0)
--- NOTE | 2020-06-25 19:14 | EKG REPORT ---
SEVERITY:- ABNORMAL ECG - SINUS RHYTHM PROBABLE ANTEROSEPTAL INFARCT, AGE INDETERM BORDERLINE T ABNORMALITIES, INFERIOR LEADS : Confirmed by: Carissa Redman MD 25-Jun-2020 19:13:21
== END ==
LOC: OD 15:06
PROVIDERS: ATTEND Orthopaedic Surgery
DX: Z01.810 Encounter for preprocedural cardiovascular examination (principal); Z01.812 Encounter for preprocedural laboratory examination; Z01.811 Encounter for preprocedural respiratory examination; J44.9 Chronic obstructive pulmonary disease, unspecified; I10 Essential (primary) hypertension; G56.01 Carpal tunnel syndrome, right upper limb
CPT/HCPCS: 36415; 71046; 80048; 85025; 93005; 93010